=== PATIENT | male | born 1940 | race Caucasian/White ===

== ENCOUNTER 2020-08-22 08:25 | Inpatient (IN) | payer MEDICARE, OTHER ==
[~2020-08-22] VITALS: Ht 175.3 cm; Wt 81.5 kg
--- NOTE | 2020-08-22 08:00 | NUR ---
Admission Note with Justification for Admission to [facility] Patient admitted to [facility] for protective oversight for emergency stabilization of acute psychiatric crisis. Pt admitted from: Home to 48 hr unit Mode of arrival: wc Accompanied By: [facility] Staff Precipitating behaviors that initiated intake and admission:paranoia, passive SI, Description of failure of out patient attempts at stabilization in previous setting list behavior and medication trials: ER effexor Behaviors and assessment findings upon admission: wandering, confusion Plan: Admit for protective oversight for adjustment and stabilization of medications, behaviors and mood. Intense treatment regimen including groups, medication adjustments, therapy, consistent regimen for ADL's, self care, and sleep hygiene. Daily monitoring by Inpatient staff, Psychiatry, and Medical Physician.
[~2020-08-22 08:25] MED LIST: PREVAGEN PO; VIT1CAPS12 PO
[2020-08-22 10:29] VITALS: BP 165/99
[2020-08-22] MEDS ORDERED: ALLO100T PO (11:36)
[2020-08-22] MEDS ORDERED: COLCHICINE 0.6 MG TABLET. PO PRN (11:45)
[2020-08-22] MEDS ORDERED: COLC0.6T34 PO (11:46)
[2020-08-22] MEDS ORDERED: CINN500C2 PO (11:46)
[2020-08-22] MEDS ORDERED: VENL37.5 PO (11:46)
[2020-08-22] MEDS ORDERED: LISI20TA18 PO (11:46)
[2020-08-22] MEDS ORDERED: PANT40TA3 PO (11:46)
[2020-08-22] MEDS ORDERED: SAW450CA7 PO (11:46)
[2020-08-22] MEDS ORDERED: DICL100G18 TP (11:46)
[2020-08-22] MEDS ORDERED: METHYL SALICYLATE/MENTHOL TOPICAL OINTMENT 57GM TUBE. TP PRN (12:00)
[2020-08-22] MEDS ORDERED: MAG HYDROX/AL HYDROX/SIMETH 30 ML ORAL.SUSP PO PRN (12:00)
[2020-08-22] MEDS ORDERED: ACETAMINOPHEN 325 MG TABLET PO PRN (12:00)
[2020-08-22] MEDS ORDERED: MAGNESIUM HYDROXIDE 2,400 MG/30 ML ORAL.SUSP. PO PRN (12:00)
[2020-08-22] MEDS ORDERED: SAW/1TAB2 PO ×2 (12:34→12:36)
[2020-08-22] MEDS ORDERED: ALLOPURINOL 100 MG TABLET. PO SCH (13:00)
[2020-08-22] MEDS: DICLOFENAC SODIUM 1% TOPICAL GEL 100GM TUBE. TP SCH ×3 (13:00→21:00)
[2020-08-22] MEDS: VENLAFAXINE XR 37.5 MG CAP.ER.24H. PO SCH (13:00)
[2020-08-22] MEDS: PANTOPRAZOLE 40 MG TABLET. PO SCH (13:00)
[2020-08-22] MEDS: LISINOPRIL 20 MG TABLET PO SCH (13:00)
[2020-08-22 16:25] VITALS: BP 125/81
--- NOTE | 2020-08-22 18:49 | NUR ---
Pt upset when coming to floor. Pt wanted to go home. Grabbed staff and wouldn't let go . Pt placed in quiet holt for short while. Dr Rinaldi called and received order for PRN [place]. Has been pleasant rest of day and did not require PRNs.
--- NOTE | 2020-08-22 22:02 | PSYEV ---
DATE OF SERVICE: REASON FOR ADMISSION: This 79-year-old male who was transferred from the Medical Unit to [facility] with a history of dementia, paranoia and suicidal statements. CHIEF COMPLAINT: The patient unable to give much information was confused and disoriented and he thinks he is at work, he did not know that he is in the hospital. The patient is not able to give any information, but was able to hold a conversation and he was pleasantly confused. HISTORY OF PRESENT ILLNESS: The patient was living at home with his in [place], apparently his is the guardian. The patient lately has been confused, very paranoid with panic attacks, suicidal ideation and statements including wanting to shoot himself. Apparently, he has sundowning, periods that he does not recognize his . The patient was evaluated at [facility] and sent here to [facility]. PAST PSYCHIATRIC HISTORY: There is not much information available. Apparently, he has not had any psychiatric hospitalizations before. The patient's chart was on Effexor 37.5 mg daily. PAST MEDICAL HISTORY: History of hypertension essential, hyperlipidemia, chronic kidney disease stage 3, gout and osteoarthritis. He was a smoker. Currently does not smoke. ALLERGIES: THE PATIENT IS ALLERGIC TO PREDNISONE. PSYCHOSOCIAL HISTORY: The patient is unable to give much information. Apparently, the patient has been living at home. is the caregiver, he had been having memory problems for the past several years, but is able to manage him. 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 The patient is twice, first marriage about 20 years, second marriage for 40 years. The patient states he has one daughter from the first marriage. One of his brothers from lung cancer. His mother at age 70. Father at age 65. REVIEW OF SYSTEMS: The patient currently not exhibiting no major physical problems. The patient apparently has been confused, paranoid, threatening to kill himself with a gun. The patient also elopement risk. Significant confusion. He is not able to follow directions. ALCOHOL, DRUG HISTORY: The patient has no history of alcohol or drug use, but he was a smoker in the past. No history of any physical, emotional, or sexual abuse. LABORATORY DATA: The patient's lab reviewed. On admission, his hemoglobin was 12.5, white count of 7800. His creatinine was 1.7, BUN 20 and electrolytes were normal. Transaminases were all normal. MENTAL STATUS EXAMINATION: The patient appeared to be of her stated age, casually dressed, alert, disoriented and able to make eye contact. The patient is somewhat restless, walks with a rattling gait. No history of falls. The patient has no awareness of his surroundings. Speech is clear and coherent at times, but able to answer questions. His affect and mood showed he is pleasantly confused, not expressing any suicidal thoughts. The patient has significant problems with his memory, is not able to remember anything from the past except that he was twice and he has a daughter from the first marriage. The patient apparently has been paranoid, recently and he denies any visual or auditory hallucinations. The patient's thinking is concrete. No evidence of any loosening of associations. No evidence of any delusions or hallucinations. He is disoriented to time, place, and person. He knew the month is August and the year, he stated was 1939. The patient is not able to participate in any testing for the memory. The patient judgment impaired. Insight minimal. STRENGTHS: Fairly in good health, supportive . 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 WEAKNESSES: The patient is currently confused, not able to recognize his at times. He has no awareness of his surroundings and he is an elopement risk. DIAGNOSTIC IMPRESSION: AXIS I: 1. 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 2. Major depressive disorder, mild. 3. Generalized anxiety disorder. AXIS II: None. AXIS III: Hypertension, hyperlipidemia, chronic kidney disease stage 3, gout. INITIAL TREATMENT PLAN: The patient will be involved in the treatment program including individual and group therapy and also increase ___ activities. The patient will be observed monitored and accordingly, he will be started on medications to control his mood swings and also for his memory problems. He will continue on Effexor 37.5 mg daily. He will continue on lisinopril 20 mg daily, Protonix 40 mg daily, allopurinol 100 mg daily and colchicine 1.2 mg p.r.n. daily and Zyprexa 2.5 mg q. 2 hours p.r.n. LENGTH OF STAY: 7-10 days. STEPHANIE THOMASON MD DR: Melany JOB#: [id number] / [id number]
[2020-08-23] MEDS: DICLOFENAC SODIUM 1% TOPICAL GEL 100GM TUBE. TP SCH ×4 (01:26→21:23)
--- NOTE | 2020-08-23 03:30 | NUR ---
Pt has had no behaviors tonight. He was cooperative with shower then rested in his room until going to bed and has been sleeping well.
[2020-08-23 06:24] VITALS: BP 122/75
[2020-08-23] MEDS: LISINOPRIL 20 MG TABLET PO SCH (08:35)
[2020-08-23] MEDS: VENLAFAXINE XR 37.5 MG CAP.ER.24H. PO SCH (08:35)
[2020-08-23] MEDS: PANTOPRAZOLE 40 MG TABLET. PO SCH (08:35)
--- NOTE | 2020-08-23 10:11 | NUR ---
Nursing note: Pt in dining room at time of AM med pass and assessment. He is pleasant, med compliant and cooperative. He denies having any pain/concerns at time of assessment. He is currently resting quietly in his room. Will continue to monitor.
--- NOTE | 2020-08-23 13:13 | NUR ---
WEEKLY ACTIVITY THERAPY NOTE Date of Admission:08/22/20 Date of AT Assessment: TBD Precipitating behaviors that initiated intake and admission:paranoia, passive SI Goal aimed:TBD Initial Goal: TBD Weekly progress towards goal: NA Group participation level:NA Weekly highlights: arrived on [facility] Behaviors observed: Plan: meet/asses pt Beneficial adaptations:
[2020-08-23 15:47] VITALS: BP 107/71
--- NOTE | 2020-08-23 20:57 | PN ---
DATE: 08/23/2020 SUBJECTIVE: The patient was seen today, met with the staff, chart reviewed, and covering for Dr. Dominguez. Also participated in the treatment review conference today. Staff reports the patient's behavior mostly confused, but pleasant, disoriented to surroundings. 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 The patient is not showing any symptoms of depression, less agitated. OBSERVATION: VITAL SIGNS: Temperature 97.5, blood pressure 122/75, pulse 70, respirations 16, O2 sat 94%. GENERAL: Slept about 8 hours last night. ASSESSMENT: 1. Dementia, most likely Alzheimer's versus vascular with depression, paranoia, confusion and behavior disturbances. 2. Major depression, single episode, mild. 3. Generalized anxiety disorder. PLAN: Continue with the current treatment plan. LENGTH OF STAY: 7 days. STEPHANIE THOMASON MD DR: SAURABH/carmelina JOB#: [id number] / [id number]
--- NOTE | 2020-08-24 01:01 | NUR ---
Last evening pt walked around the unit and was social pleasant. He is pleasantly confused and has had no behaviors. At bed time he was cooperative with care and went to sleep.
[2020-08-24 06:16] VITALS: BP 135/83
[2020-08-24] MEDS: PANTOPRAZOLE 40 MG TABLET. PO SCH (08:26)
[2020-08-24] MEDS: VENLAFAXINE XR 37.5 MG CAP.ER.24H. PO SCH (08:26)
[2020-08-24] MEDS: LISINOPRIL 20 MG TABLET PO SCH (08:26)
[2020-08-24] MEDS: DICLOFENAC SODIUM 1% TOPICAL GEL 100GM TUBE. TP SCH ×4 (08:30→20:02)
--- NOTE | 2020-08-24 09:00 | NUR ---
ACTIVITY THERAPY ASSESSMENT completed based on notes, observation and interview. Pt was standing in the hallway by the [facility]. Pt was compliant and willing to answer questions. AT introduced herself and explained to groups provided on [facility]. AT asked pt what activities he likes and he said "just about everything." Pt said all he does is "work, work, work." Pt said he also likes to watch TV, fish, work on vehicles, running and chasing around his granddaughter. Pt said the current year was "2005" but is oriented to his birthday and that he is at a hospital but unsure of which hospital. AT asked pt what brought him here and he said "it was my 's idea" he then began to say that he is stuck here while she is at the [place]. AT asked pt about his family and he said that he is and has one daughter. Pt reports that he does not have a good support system as the pt expressed frustration with his . AT asked pt if he reports and stress at this time and he said "no, but he has things to get done at home." Initial goal aimed to support socialization and engagement. Pt will participate in at least three individual or group Activity Therapy sessions per week. Addendum: 08/30/20 at 1420 by ISAAC JAMES ACT Goal repeated 08/30
--- NOTE | 2020-08-24 10:53 | NUR ---
Nursing note: Pt in dining room at time of AM med pass and assessment. He is pleasant, med compliant and cooperative. Pt denies having any pain at time of assessment, but did mention having arthritis in his hands that cause him pain every once in a while. He is currently in the day room. Will continue to monitor.
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
--- NOTE | 2020-08-24 12:05 | TX PLAN ---
Interdisciplinary Tx Plan Admission Information Aug 22, 2020 at 08:25 Legal Status (on Admission): Voluntary DPOA/Guardian Name: Kenya Peak- Contact Allergies: Coded Allergies: prednisone (Verified Allergy, Mild, STOMACH UPSET, 08/22/20) Estimated Length of Stay: 14 Diagnoses Primary Diagnosis: MDD with psychotic features, dementia unspecified with BD Reasons for Admission: Depressed, Suicidal ideation, Suspicious/paranoid, Confusion/Disoriented, Poor impulse control Problem in Patient's Words: Raphael's memory loss is progressing to the point that he is difficult to manage at home resulting in ER visits and having to have the police locate Raphael when he went for a walk and did not come home. Additional Admission Comments: Per intake record, paranoid, passive SI, depressed, sundowning, periods of not recognizing , disoriented, states that if he had a gun he would shoot himself. Problems Active Problems: Progressive memory loss Paranoid depressed pasive SI Inactive Problems: Sleeping well Medication compliant Pt Strengths/Limitations Ability for [place]: Fair Cognitive Functioning/Ability: Fair Communication Skills/Ability: Fair Financial Resources: Fair Insight/Judgement: Poor Intellectual Ability: Fair Physical Health: Fair Social Skills: Fair Stability in Family: Good Verbal Skills: Fair Discharge Criteria Discharge Criteria: Adequate arrangements @DC, Improved mood/thought Preliminary Discharge Plan Preliminary DC Plan: Placement Needed, Home Special Precautions Special Precautions: Suicide Risk Fall Risk: High Initial D/C Plan Home vs. placement Identified Discharge Needs: While Kenya would like to see Raphael come home, she is touring [facility] as a placement option for Raphael. Currently Utilized Resources Currently Utilized Resources/P: PCP Referrals Community Resources: Out patient psychiatry if available Identified Problems/Hx/Goals Objectives/Short-Term Goals Short Term Goals: Dec. Symp. Depression, Medication Stabilization, Monitor Med Effects, No Suicidal/Hernan. ideation Short Term Goals in Patient's: "To be happy and get my body where it doesn't tremble." Interventions/Frequency Staff Interventions/Frequency&: Nursing to provide rotuine safety checks, medication administration, and adl support. Psychiatry to see thre times weekly. SW visit twice weekly. SW and recreational threapy groups as Raphael desires. 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 Raphael worked at [employer] for a period of time. 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 Social: Zak has enjoyed fishing, boating, camping, and water skiing. Education: Raphael graduated high school. Community Follow-up PCP Out patient psych, if available Community Provider/Family Inpu: Team meeting was held on 08/23/20. Treatment plan data reporting analyst was completed on 08/24/20. MARJ reviewed with Kenya on 08/24/20. Kenya will be involved in next team meeting scheduled for 08/30/20. Treatment Plan Explained Patient/Clerical Car Checker had this treatment plan explained to him/her as indicated by the signature below and has been given the opportunity to ask questions and make suggestions: Date: Patient/Clerical Car Checker Signature: DARIAN MCKEON Aug 24, 2020 12:05
[2020-08-24 16:10] VITALS: BP 132/78
--- NOTE | 2020-08-24 23:49 | NUR ---
Nursing Note Pt in room during assessment, pleasant calm and cooperative. Denies complaints no behaviors this pm.
[2020-08-25 06:17] VITALS: BP 155/76
[2020-08-25] MEDS: VENLAFAXINE XR 37.5 MG CAP.ER.24H. PO SCH (08:03)
[2020-08-25] MEDS: LISINOPRIL 20 MG TABLET PO SCH (08:03)
[2020-08-25] MEDS: PANTOPRAZOLE 40 MG TABLET. PO SCH (08:03)
[2020-08-25] MEDS: DICLOFENAC SODIUM 1% TOPICAL GEL 100GM TUBE. TP SCH ×4 (08:03→20:21)
[2020-08-25 10:22] LABS: BASO # 0.1 x10^3/uL (0.0-0.2); BASO % 1 % (0-3); EOS # 0.2 x10^3/uL (0.0-0.7); EOS % 3 % (0-3); HEMATOCRIT 38.4 % (39.0-53.0); LYMPH # 1.4 x10^3/uL (1.0-4.8); LYMPH % 24 % (24-48); MEAN CORPUSCULAR HEMOGLOBIN 32 pg (25-35); MEAN CORPUSCULAR HGB CONC 34 g/dL (31-37); MEAN CORPUSCULAR VOLUME 94 fL (79-100); MONO # 0.6 x10^3/uL (0.0-1.1); MONO % 10 % (0-9); NEUT # 3.8 x10^3uL (1.8-7.7); NEUT % 63 % (31-73); PLATELET COUNT 205 x10^3/uL (140-400); RED BLOOD COUNT 4.09 x10^6/uL (4.30-5.70); RED CELL DISTRIBUTION WIDTH 13.3 % (11.5-14.5); WHITE BLOOD COUNT 6.1 x10^3/uL (4.0-11.0)
--- NOTE | 2020-08-25 13:21 | NUR ---
Nursing note: Pt in dining room at time of AM med pass and assessment. He is med compliant and cooperative. Pt is very interactive and social with peers. He is currently in the day room for group. Will continue to monitor.
[2020-08-25 16:19] VITALS: BP 142/74
[2020-08-25 17:04] LABS: ALBUMIN 3.5 g/dL (3.4-5.0); CALCIUM 9.1 mg/dL (8.5-10.1); CREATININE 1.6 mg/dL (0.7-1.3); GFR 41.8; POTASSIUM 4.7 mmol/L (3.5-5.1); TOTAL BILIRUBIN 0.3 mg/dL (0.2-1.0); TOTAL PROTEIN 7.1 g/dL (6.4-8.2)
--- NOTE | 2020-08-25 21:49 | PN ---
DATE: 08/24/2020 This is late entry for the service date 08/24/2020. SUBJECTIVE: Staff reports confusion but pleasant, problems with boundaries also exhibiting poor impulse control, low frustration tolerance. The patient also is concrete with his thinking. OBSERVATION: VITAL SIGNS: Temperature 97.8, blood pressure 135/83, pulse 71, respirations 20, O2 sat 95%. GENERAL: Slept about 6 hours last night. CURRENT MEDICATIONS: The patient's current medications include venlafaxine 37.5 mg daily and olanzapine 2.5 mg q. 2 hours p.r.n. for severe agitation. LABORATORY DATA: The patient's lab reviewed. ASSESSMENT: 1. Dementia, most likely Alzheimer's versus vascular with a depression, paranoia, confusion, and behavioral disturbances. 2. Major depression, single episode, mild. 3. Generalized anxiety disorder. PLAN: To continue with treatment. LENGTH OF STAY: 7 days. STEPHANIE THOMASON MD DR: SAURABH/carmelina JOB#: [id number] / [id number]
--- NOTE | 2020-08-26 04:28 | NUR ---
Pt has jacob pleasant social and cooperative tonight. Meds were given crushed in applesauce. He has had no behaviors tonight.
[2020-08-26 05:58] VITALS: BP 170/90
[2020-08-26] MEDS: DICLOFENAC SODIUM 1% TOPICAL GEL 100GM TUBE. TP SCH ×4 (09:00→20:56)
[2020-08-26] MEDS: VENLAFAXINE XR 37.5 MG CAP.ER.24H. PO SCH (09:12)
[2020-08-26] MEDS: PANTOPRAZOLE 40 MG TABLET. PO SCH (09:12)
[2020-08-26] MEDS: LISINOPRIL 20 MG TABLET PO SCH (09:13)
--- NOTE | 2020-08-26 10:43 | NUR ---
Pt appropriate and cooperative this shift. He is compliant with medications taken whole. His interactions with others have been appropriate. He denies SI/HI/VH/AH/delusions/pain. He is able to make his needs known ot staff and has no questions/concerns/requests at this time. Plan of care continues, will pass on to next shift.
--- NOTE | 2020-08-26 16:06 | NUR ---
1:1 with Raphael to socialize and complete MMSE. Raphael appeared to recall this worker from previous visit. He reported he napped today, visited with his peers, and played games in the day room. Raphael enjoyed sharing about his great grand daughter and how he bought her a trampoline. Raphael scored 18/30 on MMSE indicating possible moderate cognitive impairment. Raphael had difficulty drawing the face of a clock with the time of 3:30. Raphael spoke of his desire to go home and of [place]. While he had difficulty completing the questions on the MMSE, he appeared clearer than earlier in the week. Will follow.
[2020-08-26 16:38] VITALS: BP 147/91
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
--- NOTE | 2020-08-26 23:00 | NUR ---
Patient is ambulating around the unit on assumption of care. He is in pleasant spirits. Calm, cooperative and compliant with assessments and HS cares. He enjoyed a conversation with his . Denies any pain or discomfort. Denies SI. He appears to be sleeping comfortably at present time. Will continue to monitor.
[2020-08-27 06:27] VITALS: BP 164/82
[2020-08-27] MEDS: LISINOPRIL 20 MG TABLET PO SCH (08:30)
[2020-08-27] MEDS: VENLAFAXINE XR 37.5 MG CAP.ER.24H. PO SCH (08:30)
[2020-08-27] MEDS: PANTOPRAZOLE 40 MG TABLET. PO SCH (08:30)
[2020-08-27] MEDS: DICLOFENAC SODIUM 1% TOPICAL GEL 100GM TUBE. TP SCH ×4 (09:00→20:47)
[2020-08-27 16:26] VITALS: BP 122/80
--- NOTE | 2020-08-27 20:01 | NUR ---
Pt up adl to meals and is out to groups. Compliant with meds and groups.
[2020-08-27] MEDS: DIVALPROEX 125 MG CAP.SPRINK PO SCH (20:50)
--- NOTE | 2020-08-27 22:41 | PN ---
DATE: 08/27/2020 SUBJECTIVE: The patient was seen today, met with the staff, chart reviewed. Staff reports he has been cooperative, medication compliant. The patient apparently has elevated blood pressure in the morning. The patient still gets agitated easily. OBSERVATION: VITAL SIGNS: Temperature 97.6, blood pressure 164/82, pulse 72, respirations 18, O2 sat 97%. GENERAL: Slept about 8 hours last night. CURRENT MEDICATIONS: The patient's current medications include venlafaxine 37.5 mg daily, olanzapine 2.5 mg q 2 hours p.r.n. for severe agitation and started on Depakote 250 mg b.i.d. p.o. for mood stabilization. ASSESSMENT: 1. Dementia, most likely Alzheimer's versus vascular with depression, paranoia, confusion and behavior problems. 2. Major depressive disorder, single episode, mild. 3. Generalized anxiety disorder. PLAN: To continue with the treatment. LENGTH OF STAY: 7 days. STEPHANIE THOMASON MD DR: SAURABH/carmelina JOB#: [id number] / [id number]
--- NOTE | 2020-08-27 22:41 | PN ---
DATE: 08/26/2020 This is the late entry. SUBJECTIVE: The patient was seen today, met with the staff, chart reviewed. Staff reports continued problems. He is pleasant, but confused, tend to be intrusive at times. The patient lacks insight. The patient also has significant cognitive deficits. OBSERVATION: VITAL SIGNS: Temperature 97.1, blood pressure 170/90, pulse 73, respirations 20, O2 sat 95%. GENERAL: Slept about 6 hours last night. CURRENT MEDICATIONS: The patient's current medications include venlafaxine 37.5 mg daily, olanzapine 2.5 mg q. 2 hours p.r.n. for severe agitation. The patient is not having any side effects. LABORATORY DATA: Reviewed. ASSESSMENT: 1. Dementia, most likely Alzheimer's versus vascular with a depression, paranoia, confusion and behavior problems. 2. Major depressive disorder, single episode, mild. 3. Generalized anxiety disorder. PLAN: To continue with the treatment. LENGTH OF STAY: 7 days. STEPHANIE THOMASON MD DR: SAURABH/carmelina JOB#: [id number] / [id number]
--- NOTE | 2020-08-27 23:59 | NUR ---
Patient is in his room on assumption of care, awake in bed. He is in pleasant spirits. Calm, cooperative and compliant with assessments and medications taken whole. He did become irritable when told it was time to take a shower, stating "I'm busy working, there's rocks everywhere. No use in showering when I am just gonna keep working and get dirty again." Patient irritable and continued to refuse. Different staff member approached and was able to reorient the patient. Patient was then compliant with shower and HS cares. Denies any pain or discomfort. Denies SI. He appears to be sleeping comfortably at present time. Will continue to monitor.
[2020-08-28 06:49] VITALS: BP 158/90
[2020-08-28] MEDS: PANTOPRAZOLE 40 MG TABLET. PO SCH (08:50)
[2020-08-28] MEDS: DIVALPROEX 125 MG CAP.SPRINK PO SCH ×2 (08:50→21:14)
[2020-08-28] MEDS: LISINOPRIL 20 MG TABLET PO SCH (08:50)
[2020-08-28] MEDS: VENLAFAXINE XR 37.5 MG CAP.ER.24H. PO SCH (08:50)
[2020-08-28] MEDS: DICLOFENAC SODIUM 1% TOPICAL GEL 100GM TUBE. TP SCH ×4 (08:51→21:14)
[2020-08-28 15:44] VITALS: BP 127/74
--- NOTE | 2020-08-28 17:20 | NUR ---
Pt up adl to meals and groups. Pleasantly confused. Compliant with meds and cares.
--- NOTE | 2020-08-29 02:06 | NUR ---
Pt compliant with meds and cares, very pleasant but confused.
[2020-08-29 06:32] VITALS: BP 122/75
[2020-08-29] MEDS: PANTOPRAZOLE 40 MG TABLET. PO SCH (07:39)
[2020-08-29] MEDS: VENLAFAXINE XR 37.5 MG CAP.ER.24H. PO SCH (07:39)
[2020-08-29] MEDS: LISINOPRIL 20 MG TABLET PO SCH (07:39)
[2020-08-29] MEDS: DIVALPROEX 125 MG CAP.SPRINK PO SCH ×2 (07:39→20:17)
[2020-08-29] MEDS: DICLOFENAC SODIUM 1% TOPICAL GEL 100GM TUBE. TP SCH ×4 (07:40→20:17)
--- NOTE | 2020-08-29 14:10 | NUR ---
NURSING NOTE PT OUTSIDE HIS AFTERNOON, CALM AND COOPERATIVE. PT USES VOLTAREN GEL ON BILATERAL SHOULDERS. PT DENIES SI TODAY. PT INTERACTIVE WITH OTHER RESIDENTS APPROPRIATELY THIS AFTERNOON. NO COMPLICATIONS THUS FAR. CRYSTAL KILGORE.
[2020-08-29 15:54] VITALS: BP 131/75
--- NOTE | 2020-08-29 22:00 | NUR ---
Pt awake in bed in his room at change of shift. Pt was calm, pleasant and cooperative with cares and assessments. Pt was compliant with mediations whole and refused HS snack. Pt requested the lights be turned off when this staff member left room cause he was "calling it a night." Pt pulled covers up and turned onto side for sleep.
--- NOTE | 2020-08-29 22:38 | PDOC ---
Exam Note: Chacorta Note: Late entry for 08/28/2020. Please also refer to the separate dictated note~for this date of service dictated separately.~Patient seen individually. Discussed the patient with Nursing staff reviewed the chart.~Reviewed interim history and current functioning. Reviewed vital signs,~Labs/ Radiology~and current medic ations noted below. Continue current treatment with the changes noted in the dictated addendum note Assessment: Vital Signs/I&O: Vital Signs Date Time Temp Pulse Resp B/P (MAP) Pulse Ox O2 Delivery O2 Flow Rate FiO2 08/29/20 15:54 98.2 68 20 131/75 (93) 98 08/29/20 06:32 Room Air I & O 0 08/28/20 08/28/20 08/29/20 15:00 23:00 07:00 Intake Total 600 ml 360 ml Balance 600 ml 360 ml Current Medications: Meds: Current Medications Medications (Trade) Dose Ordered Sig/Noble Route PRN Reason Start Time Stop Time Status Last Admin Dose Admin Allopurinol (Zyloprim) 100 mg DAILY PO 08/22/20 13:00 08/23/20 04:15 DC 08/22/20 13:00 Colchicine (Colcrys) 1.2 mg PRN DAILY PRN PO gout MRx1 hour 08/22/20 11:45 Diclofenac Sodium (Voltaren) 1 antoine QID TP 08/22/20 13:00 08/29/20 20:17 Lisinopril (Prinivil) 20 mg DAILY PO 08/22/20 13:00 08/29/20 07:39 Pantoprazole Sodium (Protonix) 40 mg DAILY PO 08/22/20 13:00 08/29/20 07:39 Venlafaxine HCl (Effexor Xr) 37.5 mg DAILY PO 08/22/20 13:00 08/29/20 18:51 DC 08/29/20 07:39 Acetaminophen (Tylenol) 650 mg PRN Q6HRS PRN PO MILD PAIN / TEMP > 100.3'F 08/22/20 12:00 Multi-Ingredient Ointment (Analgesic [place]) 1 antoine PRN QID PRN TP MUSCLE PAIN 08/22/20 12:00 Al Hydroxide/Mg Hydroxide (Mylanta Plus Xs) 15 ml PRN AFTMEALHC PRN PO DYSPEPSIA 08/22/20 12:00 Magnesium Hydroxide (Milk Of Magnesia) 2,400 mg PRN QHS PRN PO CONSTIPATION 08/22/20 12:00 Olanzapine (ZyPREXA ZYDIS) 2.5 mg PRN Q2HRS PRN PO PSYCHOSIS 08/22/20 12:00 Divalproex Sodium (Depakote Sprinkles) 250 mg BID PO 08/27/20 21:00 08/29/20 20:17 Venlafaxine HCl (Effexor Xr) 75 mg DAILY PO 08/30/20 09:00 I have reviewed the current psychotropics carefully including drug interactions. Risk benefit ratio favors no change other than as noted in my dictated progress note. Diagnosis: Problems: (1) Major depressive disorder with psychotic features (2) Anxiety disorder, unspecified PIERRE PHILIPPE MD Aug 29, 2020 22:38
--- NOTE | 2020-08-29 22:39 | PDOC ---
Exam Note: Chacorta Note: Please also refer to the separate dictated note~for this date of service dictated separately.~Patient seen individually. Discussed the patient with Nursing staff reviewed the chart.~Reviewed interim history and current functioning. Reviewed vital signs,~Labs/ Radiology~and current medications noted below. Continue current treatment with the changes noted in the dictated addendum note Assessment: Vital Signs/I&O: Vital Signs Date Time Temp Pulse Resp B/P (MAP) Pulse Ox O2 Delivery O2 Flow Rate FiO2 08/29/20 15:54 98.2 68 20 131/75 (93) 98 08/29/20 06:32 Room Air I & O 08/28/20 08/28/20 08/29/20 15:00 23:00 07:00 Intake Total 600 ml 360 ml Balance 600 ml 360 ml Current Medications: Meds: Current Medications Medications (Trade) Dose Ordered Sig/Noble Route PRN Reason Start Time Stop Time Status Last Admin Dose Admin Allopurinol (Zyloprim) 100 mg DAILY PO 08/22/20 13:00 08/23/20 04:15 DC 08/22/20 13:00 Colchicine (Colcrys) 1.2 mg PRN DAILY PRN PO gout MRx1 hour 08/22/20 11:45 Diclofenac Sodium (Voltaren) 1 antoine QID TP 08/22/20 13:00 08/29/20 20:17 Lisinopril (Prinivil) 20 mg DAILY PO 08/22/20 13:00 08/29/20 07:39 Pantoprazole Sodium (Protonix) 40 mg DAILY PO 08/22/20 13:00 08/29/20 07:39 Venlafaxine HCl (Effexor Xr) 37.5 mg DAILY PO 08/22/20 13:00 08/29/20 18:51 DC 08/29/20 07:39 Acetaminophen (Tylenol) 650 mg PRN Q6HRS PRN PO MILD PAIN / TEMP > 100.3'F 08/22/20 12:00 Multi-Ingredient Ointment (Analgesic [place]) 1 antoine PRN QID PRN TP MUSCLE PAIN 08/22/20 12:00 Al Hydroxide/Mg Hydroxide (Mylanta Plus Xs) 15 ml PRN AFTMEALHC PRN PO DYSPEPSIA 08/22/20 12:00 Magnesium Hydroxide (Milk Of Magnesia) 2,400 mg PRN QHS PRN PO CONSTIPATION 08/22/20 12:00 Olanzapine (ZyPREXA ZYDIS) 2.5 mg PRN Q2HRS PRN PO PSYCHOSIS 08/22/20 12:00 Divalproex Sodium (Depakote Sprinkles) 250 mg BID PO 08/27/20 21:00 08/29/20 20:17 Venlafaxine HCl (Effexor Xr) 75 mg DAILY PO 08/30/20 09:00 I have reviewed the current psychotropics carefully including drug interactions. Risk benefit ratio favors no change other than as noted in my dictated progress note. Diagnosis: Problems: (1) Major depressive disorder with psychotic features (2) Anxiety disorder, unspecified PIERRE PHILIPPE MD Aug 29, 2020 22:39
[2020-08-30 06:29] VITALS: BP 122/75
--- NOTE | 2020-08-30 07:50 | PDOC ---
Exam Note: Chacorta Note: This note is a late entry for 08/28/2020 covers elements not covered in my initial note. Subjective: Dr. Rinaldi had covered for me from 14 August till August, and I assumed care of the patients from 28 August. I have reviewed information and interim progress notes at some length with Dr. Rinaldi. The patient was seen individually in the evening of 08/28/2020 with Neema ROJAS, discussed and reviewed the chart. He slept 8-1/4 hours previous night. Reportedly the patient voiced passive suicidal ideation more so in the evening. He was unable to recognize his on the phone, wandering the unit. I met with him at great length individually. 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 Recent memory is impaired. Review of Systems: No CV, , pulmonary, eye, ENT system symptoms on review. Mental Status Exam: The patient is oriented to himself and situation. Speech is coherent. Abstraction is fair. Computation is impaired. Language function is intact. Attention span is short. Mood and affect remains anxious, somewhat labile at times. No suicidal or homicidal ideation. Laboratory Data: Reviewed. Impression: Major depressive disorder with psychotic features. Mild cognitive impairment. Anxiety disorder unspecified. Impulse control disorder unspecified. Plan: I have carefully reviewed drug interactions and risk-benefit ratio. Continue rest psychotropics unchanged including Effexor and Depakote. We will check valproic acid level. Adjust Depakote to reach therapeutic level. Consider increasing Effexor depending on his progress. Assessment: Vital Signs/I&O: Vital Signs Date Time Temp Pulse Resp B/P (MAP) Pulse Ox O2 Delivery O2 Flow Rate FiO2 08/30/20 06:29 98.2 66 18 122/75 (91) 94 08/29/20 06:32 Room Air I & O 08/29/20 08/29/20 08/30/20 15:00 23:00 07:00 Intake Total 685 ml 445 ml Balance 685 ml 445 ml Current Medications: Meds: Current Medications Medications (Trade) Dose Ordered Sig/Onble Route PRN Reason Start Time Stop Time Status Last Admin Dose Admin Allopurinol (Zyloprim) 100 mg DAILY PO 08/22/20 13:00 08/23/20 04:15 DC 08/22/20 13:00 Colchicine (Colcrys) 1.2 mg PRN DAILY PRN PO gout MRx1 hour 08/22/20 11:45 Diclofenac Sodium (Voltaren) 1 antoine QID TP 08/22/20 13:00 08/29/20 20:17 Lisinopril (Prinivil) 20 mg DAILY PO 08/22/20 13:00 08/29/20 07:39 Pantoprazole Sodium (Protonix) 40 mg DAILY PO 08/22/20 13:00 08/29/20 07:39 Venlafaxine HCl (Effexor Xr) 37.5 mg DAILY PO 08/22/20 13:00 08/29/20 18:51 DC 08/29/20 07:39 Acetaminophen (Tylenol) 650 mg PRN Q6HRS PRN PO MILD PAIN / TEMP > 100.3'F 08/22/20 12:00 Multi-Ingredient Ointment (Analgesic [place]) 1 antoine PRN QID PRN TP MUSCLE PAIN 08/22/20 12:00 Al Hydroxide/Mg Hydroxide (Mylanta Plus Xs) 15 ml PRN AFTMEALHC PRN PO DYSPEPSIA 08/22/20 12:00 Magnesium Hydroxide (Milk Of Magnesia) 2,400 mg PRN QHS PRN PO CONSTIPATION 08/22/20 12:00 Olanzapine (ZyPREXA ZYDIS) 2.5 mg PRN Q2HRS PRN PO PSYCHOSIS 08/22/20 12:00 Divalproex Sodium (Depakote Sprinkles) 250 mg BID PO 08/27/20 21:00 08/29/20 20:17 Venlafaxine HCl (Effexor Xr) 75 mg DAILY PO 08/30/20 09:00 I have reviewed the current psychotropics carefully including drug interactions. Risk benefit ratio favors no change other than as noted in my dictated progress note. Diagnosis: Problems: (1) Impulse control disorder, unspecified (2) Mild cognitive impairment (3) Major depressive disorder with psychotic features (4) Anxiety disorder, unspecified PIERRE PHILIPPE MD Aug 30, 2020 07:50
[2020-08-30] MEDS: VENLAFAXINE XR 37.5 MG CAP.ER.24H. PO SCH (08:10)
[2020-08-30] MEDS: PANTOPRAZOLE 40 MG TABLET. PO SCH (08:11)
[2020-08-30] MEDS: DIVALPROEX 125 MG CAP.SPRINK PO SCH ×2 (08:11→20:25)
[2020-08-30] MEDS: LISINOPRIL 20 MG TABLET PO SCH (08:11)
--- NOTE | 2020-08-30 08:22 | PDOC ---
Exam Note: Chacorta Note: This note is a late entry for 08/29/2020 covers elements not covered in my initial note. Subjective: The patient was seen individually in the evening of 08/29/2020 with Yasmin ROJAS, discussed and reviewed the chart. He slept 7-3/4 hours previous night. The patient has had no hallucinations. He is pleasant. Review of Systems: No CV, , pulmonary, eye, ENT system symptoms on review. Mental Status Exam: The patient is oriented to himself and situation. Speech is coherent. Abstraction is fair. Computation is impaired. Language function is intact. Attention span is short. Mood and affect remains anxious, somewhat labile at times. No suicidal or homicidal ideation. Laboratory Data: Reviewed. Impression: Major depressive disorder with psychotic features. Mild cognitive impairment. Anxiety disorder unspecified. Impulse control disorder unspecified. Plan: No change from initial note. Assessment: Vital Signs/I&O: Vital Signs Date Time Temp Pulse Resp B/P (MAP) Pulse Ox O2 Delivery O2 Flow Rate FiO2 08/30/20 08:11 66 122/75 08/30/20 06:29 98.2 18 94 08/29/20 06:32 Room Air I & O 0 08/29/20 08/29/20 08/30/20 15:00 23:00 07:00 Intake Total 685 ml 445 ml Balance 685 ml 445 ml Current Medications: Meds: Current Medications Medications (Trade) Dose Ordered Sig/Noble Route PRN Reason Start Time Stop Time Status Last Admin Dose Admin Allopurinol (Zyloprim) 100 mg DAILY PO 08/22/20 13:00 08/23/20 04:15 DC 08/22/20 13:00 Colchicine (Colcrys) 1.2 mg PRN DAILY PRN PO gout MRx1 hour 08/22/20 11:45 Diclofenac Sodium (Voltaren) 1 antoine QID TP 08/22/20 13:00 08/29/20 20:17 Lisinopril (Prinivil) 20 mg DAILY PO 08/22/20 13:00 08/30/20 08:11 Pantoprazole Sodium (Protonix) 40 mg DAILY PO 08/22/20 13:00 08/30/20 08:11 Venlafaxine HCl (Effexor Xr) 37.5 mg DAILY PO 08/22/20 13:00 08/29/20 18:51 DC 08/29/20 07:39 Acetaminophen (Tylenol) 650 mg PRN Q6HRS PRN PO MILD PAIN / TEMP > 100.3'F 08/22/20 12:00 Multi-Ingredient Ointment (Analgesic [place]) 1 antoine PRN QID PRN TP MUSCLE PAIN 08/22/20 12:00 Al Hydroxide/Mg Hydroxide (Mylanta Plus Xs) 15 ml PRN AFTMEALHC PRN PO DYSPEPSIA 08/22/20 12:00 Magnesium Hydroxide (Milk Of Magnesia) 2,400 mg PRN QHS PRN PO CONSTIPATION 08/22/20 12:00 Olanzapine (ZyPREXA ZYDIS) 2.5 mg PRN Q2HRS PRN PO PSYCHOSIS 08/22/20 12:00 Divalproex Sodium (Depakote Sprinkles) 250 mg BID PO 08/27/20 21:00 08/30/20 08:11 Venlafaxine HCl (Effexor Xr) 75 mg DAILY PO 08/30/20 09:00 08/30/20 08:10 Current Medications Medications (Trade) Dose Ordered Sig/Noble Route PRN Reason Start Time Stop Time Status Last Admin Dose Admin Venlafaxine HCl (Effexor Xr) 75 mg DAILY PO 08/30/20 09:00 08/30/20 08:10 I have reviewed the current psychotropics carefully including drug interactions. Risk benefit ratio favors no change other than as noted in my dictated progress note. Diagnosis: Problems: (1) Major depressive disorder with psychotic features (2) Anxiety disorder, unspecified (3) Impulse control disorder, unspecified (4) Mild cognitive impairment PIERRE PHILIPPE MD Aug 30, 2020 08:22
[2020-08-30] MEDS: DICLOFENAC SODIUM 1% TOPICAL GEL 100GM TUBE. TP SCH ×6 (09:00→20:27)
--- NOTE | 2020-08-30 11:07 | NUR ---
Pt appears to be in a pleasant and interactive mood this morning. He is compliant with medications taken whole and is receptive to education provided. His interactions with others have been appropriate and absent of problematic behaviors. He denies SI/HI/VH/AH/delusions/pain. He is able to make his needs known to staff and has no questions/concerns/requests at this time. Plan of care continues, will pass on to next shift.
--- NOTE | 2020-08-30 14:17 | NUR ---
WEEKLY ACTIVITY THERAPY NOTE Date of Admission:08/22/20 Date of AT Assessment: 08/24 Precipitating behaviors that initiated intake and admission:paranoia, passive SI Goal aimed: support socialization and engagement Initial Goal: Pt will participate in at least three individual or group Activity Therapy sessions per week. Weekly progress towards goal: achieved, 5/ Group participation level: 2 min, 2 mod, 1 full Weekly highlights: memory game Sunday, music through the decades , chatted and listend to music with peers during patio time during Sunday group Behaviors observed: pleasant with peers and staff, needs some assistance with cognitive stimulation groups Plan: repeat goal Beneficial adaptations:
--- NOTE | 2020-08-30 14:40 | TX PLAN ---
Interdisciplinary Tx Plan Admission Information Aug 22, 2020 at 08:25 Legal Status (on Admission): Voluntary DPOA/Guardian Name: Kenya Peak- Contact Allergies: Coded Allergies: prednisone (Verified Allergy, Mild, STOMACH UPSET, 08/22/20) Estimated Length of Stay: 14 Diagnoses Primary Diagnosis: MDD with psychotic features, dementia unspecified with BD Reasons for Admission: Depressed, Suicidal ideation, Suspicious/paranoid, Confusion/Disoriented, Poor impulse control Problem in Patient's Words: Raphael's memory loss is progressing to the point that he is difficult to manage at home resulting in ER visits and having to have the police locate Raphael when he went for a walk and did not come home. Additional Admission Comments: Per intake record, paranoid, passive SI, depressed, sundowning, periods of not recognizing , disoriented, states that if he had a gun he would shoot himself. Problems Active Problems: Progressive memory loss Paranoid depressed pasive SI Inactive Problems: Sleeping well Medication compliant Pt Strengths/Limitations Ability for [place]: Fair Cognitive Functioning/Ability: Fair Communication Skills/Ability: Fair Financial Resources: Fair Insight/Judgement: Poor Intellectual Ability: Fair Physical Health: Fair Social Skills: Fair Stability in Family: Good Verbal Skills: Fair Discharge Criteria Discharge Criteria: Adequate arrangements @DC, Improved mood/thought Preliminary Discharge Plan Preliminary DC Plan: Placement Needed, Home Special Precautions Special Precautions: Suicide Risk Fall Risk: High Initial D/C Plan Home vs. placement Identified Discharge Needs: While Kenya would like to see Raphael come home, she is touring [facility] as a placement option for Raphael. Currently Utilized Resources Currently Utilized Resources/P: PCP Referrals Community Resources: Out patient psychiatry if available Identified Problems/Hx/Goals Objectives/Short-Term Goals Short Term Goals: Dec. Symp. Depression, Medication Stabilization, Monitor Med Effects, No Suicidal/Hernan. ideation Short Term Goals in Patient's: "To be happy and get my body where it doesn't tremble." Interventions/Frequency Staff Interventions/Frequency&: Nursing to provide rotuine safety checks, medication administration, and adl support. Psychiatry to see thre times weekly. SW visit twice weekly. SW and recreational threapy groups as Raphael desires. 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 Raphael worked at [email or web address] for a period of time. 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 Social: Zak has enjoyed fishing, boating, camping, and water skiing. Education: Raphael graduated high school. Community Follow-up PCP Out patient psych, if available Community Provider/Family Inpu: Team meeting was held on 08/23/20. Treatment plan database security administrator was completed on 08/24/20. MARJ reviewed with eKnya on 08/24/20. Kenya will be involved in next team meeting scheduled for 08/30/20. Treatment Plan Explained Patient/Director Of Cardiology Service Line had this treatment plan explained to him/her as indicated by the signature below and has been given the opportunity to ask questions and make suggestions: Date: Patient/Director Of Cardiology Service Line Signature: Status Update Update WEEKLY NOTE/UPDATE: Raphael has been medication compliant and cooperative with nursing assessments. He has been involved in five group activities this past week and is attending meals in the dining room. Meal intakes and sleep are adequate. Raphael scored 18/30 on MMSE and is noted to sundown. His Effexor was increased to 75mg po daily as he had SI on 08/27/20. Valproic level will be checked on 08/31/20. Raphael benefits from cues, prompts, reminders for safety. His was unable to be involved in team meeting his date as she had another appointment. is planning on placing Raphael and has toured [facility] and rehab. She does not feel able to manage him at home any longer. MARJ will discuss placement with Raphael and coordinate referral to [place]. Tentative d/c date next week. DARIAN MCKEON Aug 30, 2020 14:40
[2020-08-30 16:12] VITALS: BP 135/75
--- NOTE | 2020-08-30 22:25 | PDOC ---
Exam Note: Chacorta Note: Please also refer to the separate dictated note~for this date of service dictated separately.~Patient seen individually. Discussed the patient with Nursing staff reviewed the chart.~Reviewed interim history and current functioning. Reviewed vital signs,~Labs/ Radiology~and current medications noted below. Continue current treatment with the changes noted in the dictated addendum note Assessment: Vital Signs/I&O: Vital Signs Date Time Temp Pulse Resp B/P (MAP) Pulse Ox O2 Delivery O2 Flow Rate FiO2 08/30/20 16:12 98.3 64 18 135/75 (95) 95 08/29/20 06:32 Room Air I & O 08/29/20 08/29/20 08/30/20 15:00 23:00 07:00 Intake Total 685 ml 445 ml Balance 685 ml 445 ml Current Medications: Meds: Current Medications Medications (Trade) Dose Ordered Sig/Noble Route PRN Reason Start Time Stop Time Status Last Admin Dose Admin Allopurinol (Zyloprim) 100 mg DAILY PO 08/22/20 13:00 08/23/20 04:15 DC 08/22/20 13:00 Colchicine (Colcrys) 1.2 mg PRN DAILY PRN PO gout MRx1 hour 08/22/20 11:45 Diclofenac Sodium (Voltaren) 1 antoine QID TP 08/22/20 13:00 08/29/20 20:17 Lisinopril (Prinivil) 20 mg DAILY PO 08/22/20 13:00 08/30/20 08:11 Pantoprazole Sodium (Protonix) 40 mg DAILY PO 08/22/20 13:00 08/30/20 08:11 Venlafaxine HCl (Effexor Xr) 37.5 mg DAILY PO 08/22/20 13:00 08/29/20 18:51 DC 08/29/20 07:39 Acetaminophen (Tylenol) 650 mg PRN Q6HRS PRN PO MILD PAIN / TEMP > 100.3'F 08/22/20 12:00 Multi-Ingredient Ointment (Analgesic [place]) 1 antoine PRN QID PRN TP MUSCLE PAIN 08/22/20 12:00 Al Hydroxide/Mg Hydroxide (Mylanta Plus Xs) 15 ml PRN AFTMEALHC PRN PO DYSPEPSIA 08/22/20 12:00 Magnesium Hydroxide (Milk Of Magnesia) 2,400 mg PRN QHS PRN PO CONSTIPATION 08/22/20 12:00 Olanzapine (ZyPREXA ZYDIS) 2.5 mg PRN Q2HRS PRN PO PSYCHOSIS 08/22/20 12:00 Divalproex Sodium (Depakote Sprinkles) 250 mg BID PO 08/27/20 21:00 08/30/20 20:25 Venlafaxine HCl (Effexor Xr) 75 mg DAILY PO 08/30/20 09:00 08/30/20 08:10 Current Medications Medications (Trade) Dose Ordered Sig/Noble Route PRN Reason Start Time Stop Time Status Last Admin Dose Admin Venlafaxine HCl (Effexor Xr) 75 mg DAILY PO 08/30/20 09:00 08/30/20 08:10 I have reviewed the current psychotropics carefully including drug interactions. Risk benefit ratio favors no change other than as noted in my dictated progress note. Diagnosis: Problems: (1) Major depressive disorder with psychotic features (2) Anxiety disorder, unspecified (3) Impulse control disorder, unspecified (4) Mild cognitive impairment PIERRE PHILIPPE MD Aug 30, 2020 22:25
[2020-08-31 06:27] VITALS: BP 123/73
[2020-08-31 06:41] LABS: BASO # 0.1 x10^3/uL (0.0-0.2); BASO % 1 % (0-3); EOS # 0.2 x10^3/uL (0.0-0.7); EOS % 3 % (0-3); HEMATOCRIT 35.7 % (39.0-53.0); HEMOGLOBIN 12.1 g/dL (13.0-17.5); LYMPH # 1.9 x10^3/uL (1.0-4.8); LYMPH % 32 % (24-48); MEAN CORPUSCULAR HEMOGLOBIN 32 pg (25-35); MEAN CORPUSCULAR HGB CONC 34 g/dL (31-37); MEAN CORPUSCULAR VOLUME 93 fL (79-100); MONO # 0.6 x10^3/uL (0.0-1.1); MONO % 10 % (0-9); NEUT # 3.3 x10^3uL (1.8-7.7); NEUT % 54 % (31-73); PLATELET COUNT 207 x10^3/uL (140-400); RED BLOOD COUNT 3.86 x10^6/uL (4.30-5.70); WHITE BLOOD COUNT 6.1 x10^3/uL (4.0-11.0)
[2020-08-31 07:28] LABS: ALBUMIN 2.9 g/dL (3.4-5.0); ALBUMIN/GLOBULIN RATIO 0.8 (1.0-1.7); ALK PHOS 59 U/L (46-116); ALT (SGPT) 18 U/L (16-63); ANION GAP 5 (6-14); AST (SGOT) 9 U/L (15-37); BLOOD UREA NITROGEN 22 mg/dL (8-26); BUN/CREATININE RATIO 15 (6-20); CALCIUM 8.4 mg/dL (8.5-10.1); CARBON DIOXIDE 28 mmol/L (21-32); CHLORIDE 106 mmol/L (98-107); CREATININE 1.5 mg/dL (0.7-1.3); GLUCOSE 93 mg/dL (70-99); POTASSIUM 4.2 mmol/L (3.5-5.1); SODIUM 139 mmol/L (136-145); TOTAL BILIRUBIN 0.3 mg/dL (0.2-1.0); TOTAL PROTEIN 6.4 g/dL (6.4-8.2)
[2020-08-31 07:50] LABS: VAL ACID 27 mcg/mL (50-100)
[2020-08-31] MEDS: LISINOPRIL 20 MG TABLET PO SCH (08:26)
[2020-08-31] MEDS: PANTOPRAZOLE 40 MG TABLET. PO SCH (08:26)
[2020-08-31] MEDS: VENLAFAXINE XR 37.5 MG CAP.ER.24H. PO SCH (08:26)
[2020-08-31] MEDS: DICLOFENAC SODIUM 1% TOPICAL GEL 100GM TUBE. TP SCH ×5 (08:26→20:16)
[2020-08-31] MEDS: DIVALPROEX 125 MG CAP.SPRINK PO SCH ×2 (08:26→19:41)
--- NOTE | 2020-08-31 08:56 | PDOC ---
Exam Note: Chacorta Note: This note is a late entry for 08/30/2020 covers elements not covered in my initial note. Subjective: The patient was reviewed in the morning of 08/30/2020 for a treatment team meeting with Makayla Forde, Kitty Mercedes and Delmi (social welfare administrator), Vannesa, activity therapy and Yasmin ROJAS, discussed and reviewed the chart. He slept 8-3/4 hours previous night. The patient has been confused. His [place] and [id number] Janie were to attend but were unavailable for the meeting. Review of Systems: No CV, , pulmonary, eye, ENT system symptoms on review. Mental Status Exam: The patient is oriented to himself and situation. 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 Speech is coherent. Abstraction is fair. Computation is impaired. Language function is intact. Attention span is short. Mood and affect remains anxious, somewhat labile at times. No suicidal or homicidal ideation. Laboratory Data: Reviewed. Impression: Major depressive disorder with psychotic features. Mild cognitive impairment. Anxiety disorder unspecified. Impulse control disorder unspecified. Plan: No change from initial note. On 08/29 the patients Effexor XR was increased from 37.5 mg a day to 75 mg a day. We may consider increasing it further depending on his progress with mood and anxiety symptoms resolution. I have received a note from Makayla Forde [facility] that there is a requirement for incapacity for the DPOA to be initiated and this needs to be done by two physicians. I have been requested to do this as one of the physicians and given the patients overall functioning and mental status, I would be happy to sign this form of incapacity to initiate DPOA status. Assessment: Vital Signs/I&O: Vital Signs Date Time Temp Pulse Resp B/P (MAP) Pulse Ox O2 Delivery O2 Flow Rate FiO2 08/31/20 08:26 70 123/73 08/31/20 06:27 97.6 18 94 08/29/20 06:32 Room Air I & O 08/30/20 08/30/20 08/31/20 15:00 23:00 07:00 Intake Total 600 ml 600 ml Balance 600 ml 600 ml Labs: Laboratory Tests Test 08/31/20 06:17 White Blood Count 6.1 x10^3/uL (4.0-11.0) Red Blood Count 3.86 x10^6/uL (4.30-5.70) L Hemoglobin 12.1 g/dL (13.0-17.5) L Hematocrit 35.7 % (39.0-53.0) L Mean Corpuscular Volume 93 fL (79-100) Mean Corpuscular Hemoglobin 32 pg (25-35) Mean Corpuscular Hemoglobin Concent 34 g/dL (31-37) Red Cell Distribution Width 13.0 % (11.5-14.5) Platelet Count 207 x10^3/uL (140-400) Neutrophils (%) (Auto) 54 % (31-73) Lymphocytes (%) (Auto) 32 % (24-48) Monocytes (%) (Auto) 10 % (0-9) H Eosinophils (%) (Auto) 3 % (0-3) Basophils (%) (Auto) 1 % (0-3) Neutrophils # (Auto) 3.3 x10^3uL (1.8-7.7) Lymphocytes # (Auto) 1.9 x10^3/uL (1.0-4.8) Monocytes # (Auto) 0.6 x10^3/uL (0.0-1.1) Eosinophils # (Auto) 0.2 x10^3/uL (0.0-0.7) Basophils # (Auto) 0.1 x10^3/uL (0.0-0.2) Sodium Level 139 mmol/L (136-145) Potassium Level 4.2 mmol/L (3.5-5.1) Chloride Level 106 mmol/L (98-107) Carbon Dioxide Level 28 mmol/L (21-32) Anion Gap 5 (6-14) L Blood Urea Nitrogen 22 mg/dL (8-26) Creatinine 1.5 mg/dL (0.7-1.3) H Estimated GFR (Cockcroft-Gault) 45.0 BUN/Creatinine Ratio 15 (6-20) Glucose Level 93 mg/dL (70-99) Calcium Level 8.4 mg/dL (8.5-10.1) L Total Bilirubin 0.3 mg/dL (0.2-1.0) Aspartate Amino Transferase (AST) 9 U/L (15-37) L Alanine Aminotransferase (ALT) 18 U/L (16-63) Alkaline Phosphatase 59 U/L (46-116) Total Protein 6.4 g/dL (6.4-8.2) Albumin 2.9 g/dL (3.4-5.0) L Albumin/Globulin Ratio 0.8 (1.0-1.7) L Valproic Acid Level 27 mcg/mL (50-100) L Valproic Acid Last Dose Date 08/30/20 Valproic Acid Last Dose Time 2100 Current Medications: Meds: Laboratory Tests Test 08/31/20 06:17 White Blood Count 6.1 x10^3/uL Red Blood Count 3.86 x10^6/uL Hemoglobin 12.1 g/dL Hematocrit 35.7 % Mean Corpuscular Volume 93 fL Mean Corpuscular Hemoglobin 32 pg Mean Corpuscular Hemoglobin Concent 34 g/dL Red Cell Distribution Width 13.0 % Platelet Count 207 x10^3/uL Neutrophils (%) (Auto) 54 % Lymphocytes (%) (Auto) 32 % Monocytes (%) (Auto) 10 % Eosinophils (%) (Auto) 3 % Basophils (%) (Auto) 1 % Neutrophils # (Auto) 3.3 x10^3uL Lymphocytes # (Auto) 1.9 x10^3/uL Monocytes # (Auto) 0.6 x10^3/uL Eosinophils # (Auto) 0.2 x10^3/uL Basophils # (Auto) 0.1 x10^3/uL Sodium Level 139 mmol/L Potassium Level 4.2 mmol/L Chloride Level 106 mmol/L Carbon Dioxide Level 28 mmol/L Anion Gap 5 Blood Urea Nitrogen 22 mg/dL Creatinine 1.5 mg/dL Estimated GFR (Cockcroft-Gault) 45.0 BUN/Creatinine Ratio 15 Glucose Level 93 mg/dL Calcium Level 8.4 mg/dL Total Bilirubin 0.3 mg/dL Aspartate Amino Transf (AST/SGOT) 9 U/L Alanine Aminotransferase (ALT/SGPT) 18 U/L Alkaline Phosphatase 59 U/L Total Protein 6.4 g/dL Albumin 2.9 g/dL Albumin/Globulin Ratio 0.8 Valproic Acid (Depakene) Level 27 mcg/mL Valproic Acid Last Dose Date 08/30/20 Valproic Acid Last Dose Time 2100 Current Medications Medications (Trade) Dose Ordered Sig/Noble Route PRN Reason Start Time Stop Time Status Last Admin Dose Admin Allopurinol (Zyloprim) 100 mg DAILY PO 08/22/20 13:00 08/23/20 04:15 DC 08/22/20 13:00 Colchicine (Colcrys) 1.2 mg PRN DAILY PRN PO gout MRx1 hour 08/22/20 11:45 Diclofenac Sodium (Voltaren) 1 antoine QID TP 08/22/20 13:00 08/29/20 20:17 Lisinopril (Prinivil) 20 mg DAILY PO 08/22/20 13:00 08/31/20 08:26 Pantoprazole Sodium (Protonix) 40 mg DAILY PO 08/22/20 13:00 08/31/20 08:26 Venlafaxine HCl (Effexor Xr) 37.5 mg DAILY PO 08/22/20 13:00 08/29/20 18:51 DC 08/29/20 07:39 Acetaminophen (Tylenol) 650 mg PRN Q6HRS PRN PO MILD PAIN / TEMP > 100.3'F 08/22/20 12:00 Multi-Ingredient Ointment (Analgesic [place]) 1 antoine PRN QID PRN TP MUSCLE PAIN 08/22/20 12:00 Al Hydroxide/Mg Hydroxide (Mylanta Plus Xs) 15 ml PRN AFTMEALHC PRN PO DYSPEPSIA 08/22/20 12:00 Magnesium Hydroxide (Milk Of Magnesia) 2,400 mg PRN QHS PRN PO CONSTIPATION 08/22/20 12:00 Olanzapine (ZyPREXA ZYDIS) 2.5 mg PRN Q2HRS PRN PO PSYCHOSIS 08/22/20 12:00 Divalproex Sodium (Depakote Sprinkles) 250 mg BID PO 08/27/20 21:00 08/31/20 08:26 Venlafaxine HCl (Effexor Xr) 75 mg DAILY PO 08/30/20 09:00 08/31/20 08:26 Current Medications Medications (Trade) Dose Ordered Sig/Noble Route PRN Reason Start Time Stop Time Status Last Admin Dose Admin Venlafaxine HCl (Effexor Xr) 75 mg DAILY PO 08/30/20 09:00 08/31/20 08:26 I have reviewed the current psychotropics carefully including drug interactions. Risk benefit ratio favors no change other than as noted in my dictated progress note. Diagnosis: Problems: (1) Major depressive disorder with psychotic features (2) Anxiety disorder, unspecified (3) Impulse control disorder, unspecified (4) Mild cognitive impairment PIERRE PHILIPPE MD Aug 31, 2020 08:56
--- NOTE | 2020-08-31 10:20 | NUR ---
Pt appropriate with his interactions with others, he is med compliant and cooperative with assessment. He denies SI/HI/VH/AH/delusions/pain. He is able to make his needs known to staff and has no questions/concerns/requests at this time. Plan of care continues, will pass on to next shift.
[2020-08-31 16:24] VITALS: BP 139/80
--- NOTE | 2020-08-31 16:39 | NUR ---
Met with Raphael to discuss the inability for [place], his , to continue to provide the care he needs at home. Raphael was able to understand the information in the moment and stated he did not want to go to a senior living home. He stated that his was going to "just put me somewhere." Reassurance provided to Raphael that his was touring a penitentiary in [place] and planned to visit him weekly as well as bring his great grand daughter, Cisco, to see him. Raphael stated, "she's my life." Raphael spoke of wanting only good things for Cisco and shared stories of their time spent together. Raphael was quickly distracted from topic at hand and MARJ is uncertain that he will be able to retain discussion about placement. MARJ will follow up with Raphael tomorrow to offer support. Notified Raphael's nurse of discussion to monitor and support prn.
--- NOTE | 2020-08-31 19:42 | NUR ---
Patient is agitated and demanding to go home. He is demanding to call his for a ride and has "squared up" with multilple female staff members. PRN zyprexa given with HS medications per order for agitation and aggression. Addendum: 09/01/20 at 0118 by ONOFRE RIVERA RN PRN Zyprexa was effective. Patient quickly calmed down and remained calm the rest of the night.
--- NOTE | 2020-08-31 22:04 | PDOC ---
Exam Note: Chacorta Note: Please also refer to the separate dictated note~for this date of service dictated separately.~Patient seen individually. Discussed the patient with Nursing staff reviewed the chart.~Reviewed interim history and current functioning. Reviewed vital signs,~Labs/ Radiology~and current medications noted below. Continue current treatment with the changes noted in the dictated addendum note Assessment: Vital Signs/I&O: Vital Signs Date Time Temp Pulse Resp B/P (MAP) Pulse Ox O2 Delivery O2 Flow Rate FiO2 08/31/20 16:24 98.1 64 16 139/80 (99) 96 08/29/20 06:32 Room Air I & O 08/30/20 08/30/20 08/31/20 15:00 23:00 07:00 Intake Total 600 ml 600 ml Balance 600 ml 600 ml Labs: Laboratory Tests Test 08/31/20 06:17 White Blood Count 6.1 x10^3/uL (4.0-11.0) Red Blood Count 3.86 x10^6/uL (4.30-5.70) L Hemoglobin 12.1 g/dL (13.0-17.5) L Hematocrit 35.7 % (39.0-53.0) L Mean Corpuscular Volume 93 fL (79-100) Mean Corpuscular Hemoglobin 32 pg (25-35) Mean Corpuscular Hemoglobin Concent 34 g/dL (31-37) Red Cell Distribution Width 13.0 % (11.5-14.5) Platelet Count 207 x10^3/uL (140-400) Neutrophils (%) (Auto) 54 % (31-73) Lymphocytes (%) (Auto) 32 % (24-48) Monocytes (%) (Auto) 10 % (0-9) H Eosinophils (%) (Auto) 3 % (0-3) Basophils (%) (Auto) 1 % (0-3) Neutrophils # (Auto) 3.3 x10^3uL (1.8-7.7) Lymphocytes # (Auto) 1.9 x10^3/uL (1.0-4.8) Monocytes # (Auto) 0.6 x10^3/uL (0.0-1.1) Eosinophils # (Auto) 0.2 x10^3/uL (0.0-0.7) Basophils # (Auto) 0.1 x10^3/uL (0.0-0.2) Sodium Level 139 mmol/L (136-145) Potassium Level 4.2 mmol/L (3.5-5.1) Chloride Level 106 mmol/L (98-107) Carbon Dioxide Level 28 mmol/L (21-32) Anion Gap 5 (6-14) L Blood Urea Nitrogen 22 mg/dL (8-26) Creatinine 1.5 mg/dL (0.7-1.3) H Estimated GFR (Cockcroft-Gault) 45.0 BUN/Creatinine Ratio 15 (6-20) Glucose Level 93 mg/dL (70-99) Calcium Level 8.4 mg/dL (8.5-10.1) L Total Bilirubin 0.3 mg/dL (0.2-1.0) Aspartate Amino Transferase (AST) 9 U/L (15-37) L Alanine Aminotransferase (ALT) 18 U/L (16-63) Alkaline Phosphatase 59 U/L (46-116) Total Protein 6.4 g/dL (6.4-8.2) Albumin 2.9 g/dL (3.4-5.0) L Albumin/Globulin Ratio 0.8 (1.0-1.7) L Valproic Acid Level 27 mcg/mL (50-100) L Valproic Acid Last Dose Date 08/30/20 Valproic Acid Last Dose Time 2100 Current Medications: Meds: Laboratory Tests Test 08/31/20 06:17 White Blood Count 6.1 x10^3/uL Red Blood Count 3.86 x10^6/uL Hemoglobin 12.1 g/dL Hematocrit 35.7 % Mean Corpuscular Volume 93 fL Mean Corpuscular Hemoglobin 32 pg Mean Corpuscular Hemoglobin Concent 34 g/dL Red Cell Distribution Width 13.0 % Platelet Count 207 x10^3/uL Neutrophils (%) (Auto) 54 % Lymphocytes (%) (Auto) 32 % Monocytes (%) (Auto) 10 % Eosinophils (%) (Auto) 3 % Basophils (%) (Auto) 1 % Neutrophils # (Auto) 3.3 x10^3uL Lymphocytes # (Auto) 1.9 x10^3/uL Monocytes # (Auto) 0.6 x10^3/uL Eosinophils # (Auto) 0.2 x10^3/uL Basophils # (Auto) 0.1 x10^3/uL Sodium Level 139 mmol/L Potassium Level 4.2 mmol/L Chloride Level 106 mmol/L Carbon Dioxide Level 28 mmol/L Anion Gap 5 Blood Urea Nitrogen 22 mg/dL Creatinine 1.5 mg/dL Estimated GFR (Cockcroft-Gault) 45.0 BUN/Creatinine Ratio 15 Glucose Level 93 mg/dL Calcium Level 8.4 mg/dL Total Bilirubin 0.3 mg/dL Aspartate Amino Transf (AST/SGOT) 9 U/L Alanine Aminotransferase (ALT/SGPT) 18 U/L Alkaline Phosphatase 59 U/L Total Protein 6.4 g/dL Albumin 2.9 g/dL Albumin/Globulin Ratio 0.8 Valproic Acid (Depakene) Level 27 mcg/mL Valproic Acid Last Dose Date 08/30/20 Valproic Acid Last Dose Time 2100 Current Medications Medications (Trade) Dose Ordered Sig/Noble Route PRN Reason Start Time Stop Time Status Last Admin Dose Admin Allopurinol (Zyloprim) 100 mg DAILY PO 08/22/20 13:00 08/23/20 04:15 DC 08/22/20 13:00 Colchicine (Colcrys) 1.2 mg PRN DAILY PRN PO gout MRx1 hour 08/22/20 11:45 Diclofenac Sodium (Voltaren) 1 antoine QID TP 08/22/20 13:00 08/29/20 20:17 Lisinopril (Prinivil) 20 mg DAILY PO 08/22/20 13:00 08/31/20 08:26 Pantoprazole Sodium (Protonix) 40 mg DAILY PO 08/22/20 13:00 08/31/20 08:26 Venlafaxine HCl (Effexor Xr) 37.5 mg DAILY PO 08/22/20 13:00 08/29/20 18:51 DC 08/29/20 07:39 Acetaminophen (Tylenol) 650 mg PRN Q6HRS PRN PO MILD PAIN / TEMP > 100.3'F 08/22/20 12:00 Multi-Ingredient Ointment (Analgesic [place]) 1 antoine PRN QID PRN TP MUSCLE PAIN 08/22/20 12:00 Al Hydroxide/Mg Hydroxide (Mylanta Plus Xs) 15 ml PRN AFTMEALHC PRN PO DYSPEPSIA 08/22/20 12:00 Magnesium Hydroxide (Milk Of Magnesia) 2,400 mg PRN QHS PRN PO CONSTIPATION 08/22/20 12:00 Olanzapine (ZyPREXA ZYDIS) 2.5 mg PRN Q2HRS PRN PO PSYCHOSIS 08/22/20 12:00 08/31/20 19:41 Divalproex Sodium (Depakote Sprinkles) 250 mg BID PO 08/27/20 21:00 08/31/20 17:44 DC 08/31/20 08:26 Venlafaxine HCl (Effexor Xr) 75 mg DAILY PO 08/30/20 09:00 08/31/20 08:26 Divalproex Sodium (Depakote Sprinkles) 500 mg BID PO 08/31/20 21:00 08/31/20 19:41 Current Medications Medications (Trade) Dose Ordered Sig/Noble Route PRN Reason Start Time Stop Time Status Last Admin Dose Admin Divalproex Sodium (Depakote Sprinkles) 500 mg BID PO 08/31/20 21:00 08/31/20 19:41 I have reviewed the current psychotropics carefully including drug interactions. Risk benefit ratio favors no change other than as noted in my dictated progress note. Diagnosis: Problems: (1) Major depressive disorder with psychotic features (2) Anxiety disorder, unspecified (3) Impulse control disorder, unspecified (4) Mild cognitive impairment PIERRE PHILIPPE MD Aug 31, 2020 22:04
--- NOTE | 2020-09-01 01:18 | NUR ---
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 He stated that it was "unfair" that all these guys can call their wives but he cannot. Patient had just gotten off the phone with his and had been asking her to come pick him up. Patient compliant with medications, taken whole with water. Patient had attempted to "square up" with CNAs multiple times prior to PRN but was calmer after medication and was observed sitting in a chair near the [facility].
[2020-09-01 06:41] VITALS: BP 161/82
--- NOTE | 2020-09-01 07:53 | PDOC ---
Exam Note: Chacorta Note: This note is a late entry for 08/31/2020 covers elements not covered in my initial note. Subjective: The patient was seen individually in the evening of 08/31/2020 with Yasmin ROJAS, discussed and reviewed the chart. He slept 7-1/2 hours previous night. Overall the patient has been anxious, restless. Denies suicidal ideation. Staff shared with him that he will going to a long-term facility. He is somewhat anxious, labile about this and I addressed this with him. Valproic acid level is 27. Review of Systems: No CV, , pulmonary, eye, ENT system symptoms on review. Mental Status Exam: The patient is oriented to himself and situation. I have carefully assessed the patient and asked to sign a physical statement that the DOPA should be activated. Given the patients cognitive deficits, I would agree that designated power of manager massage department paperwork should be activated and I shared this with the patient as well. Speech coherent. Abstraction is fair. Computation is impaired. Language function is intact. Attention span is short. Mood and affect remains anxious, somewhat labile at times. No suicidal or homicidal ideation. Laboratory Data: Reviewed. Impression: Major depressive disorder with psychotic features. Mild cognitive impairment. Anxiety disorder unspecified. Impulse control disorder unspecified. Plan: No change from initial note. The patient is currently on Depakote 250 mg b.i.d. with level of 27 subtherapeutic. We will increase to 500 mg b.i.d. Check CBC, CMP, valproic acid level in 3 days. Maintain Effexor XR 75 mg a day. Adjust further as clinically indicated. Assessment: Vital Signs/I&O: Vital Signs Date Time Temp Pulse Resp B/P (MAP) Pulse Ox O2 Delivery O2 Flow Rate FiO2 09/01/20 06:41 97.0 65 18 161/82 (108) 97 08/29/20 06:32 Room Air I & O 08/31/20 08/31/20 09/01/20 15:00 23:00 07:00 Intake Total 960 ml 360 ml Balance 960 ml 360 ml Current Medications: Meds: Current Medications Medications (Trade) Dose Ordered Sig/Noble Route PRN Reason Start Time Stop Time Status Last Admin Dose Admin Divalproex Sodium (Depakote Sprinkles) 500 mg BID PO 08/31/20 21:00 08/31/20 19:41 I have reviewed the current psychotropics carefully including drug interactions. Risk benefit ratio favors no change other than as noted in my dictated progress note. Diagnosis: Problems: (1) Major depressive disorder with psychotic features (2) Anxiety disorder, unspecified (3) Impulse control disorder, unspecified (4) Mild cognitive impairment PIERRE PHILIPPE MD Sep 01, 2020 07:53
[2020-09-01] MEDS: LISINOPRIL 20 MG TABLET PO SCH (09:27)
[2020-09-01] MEDS: DIVALPROEX 125 MG CAP.SPRINK PO SCH ×2 (09:27→21:10)
[2020-09-01] MEDS: DICLOFENAC SODIUM 1% TOPICAL GEL 100GM TUBE. TP SCH ×4 (09:27→21:38)
[2020-09-01] MEDS: PANTOPRAZOLE 40 MG TABLET. PO SCH (09:27)
[2020-09-01] MEDS: VENLAFAXINE XR 37.5 MG CAP.ER.24H. PO SCH (09:27)
--- NOTE | 2020-09-01 15:52 | NUR ---
1:1 visit with Raphael this afternoon as he sat in the day room. Raphael told MARJ that he was offered a job [employer] and declined it. He also stated that he went to visit his [place] last night. Raphael is social and initiates conversation and speaks as if he is still working. MARJ validated feelings behind communication. Raphael made no mention of previous conversation with MARJ about placement. MARJ will contact [facility] and forward referral packet for review.
[2020-09-01 15:54] VITALS: BP 120/79
--- NOTE | 2020-09-01 16:45 | NUR ---
Nursing note: Pt has been pleasant, med compliant and cooperative this shift. He has no complaints of pain or other concerns. He has spent most of the shift in the day room. He is currently watching TV in the day room. Will continue to monitor.
--- NOTE | 2020-09-01 22:05 | PDOC ---
Exam Note: Chacorta Note: Please also refer to the separate dictated note~for this date of service dictated separately.~Patient seen individually. Discussed the patient with Nursing staff reviewed the chart.~Reviewed interim history and current functioning. Reviewed vital signs,~Labs/ Radiology~and current medications noted below. Continue current treatment with the changes noted in the dictated addendum note Assessment: Vital Signs/I&O: Vital Signs Date Time Temp Pulse Resp B/P (MAP) Pulse Ox O2 Delivery O2 Flow Rate FiO2 09/01/20 15:54 97.4 81 19 120/79 (93) 98 08/29/20 06:32 Room Air I & O 08/31/20 08/31/20 09/01/20 15:00 23:00 07:00 Intake Total 960 ml 360 ml Balance 960 ml 360 ml Current Medications: Meds: Current Medications Medications (Trade) Dose Ordered Sig/Noble Route PRN Reason Start Time Stop Time Status Last Admin Dose Admin Allopurinol (Zyloprim) 100 mg DAILY PO 08/22/20 13:00 08/23/20 04:15 DC 08/22/20 13:00 Colchicine (Colcrys) 1.2 mg PRN DAILY PRN PO gout MRx1 hour 08/22/20 11:45 Diclofenac Sodium (Voltaren) 1 antoine QID TP 08/22/20 13:00 09/01/20 17:34 Lisinopril (Prinivil) 20 mg DAILY PO 08/22/20 13:00 09/01/20 09:27 Pantoprazole Sodium (Protonix) 40 mg DAILY PO 08/22/20 13:00 09/01/20 09:27 Venlafaxine HCl (Effexor Xr) 37.5 mg DAILY PO 08/22/20 13:00 08/29/20 18:51 DC 08/29/20 07:39 Acetaminophen (Tylenol) 650 mg PRN Q6HRS PRN PO MILD PAIN / TEMP > 100.3'F 08/22/20 12:00 Multi-Ingredient Ointment (Analgesic [place]) 1 antoine PRN QID PRN TP MUSCLE PAIN 08/22/20 12:00 Al Hydroxide/Mg Hydroxide (Mylanta Plus Xs) 15 ml PRN AFTMEALHC PRN PO DYSPEPSIA 08/22/20 12:00 Magnesium Hydroxide (Milk Of Magnesia) 2,400 mg PRN QHS PRN PO CONSTIPATION 08/22/20 12:00 Olanzapine (ZyPREXA ZYDIS) 2.5 mg PRN Q2HRS PRN PO PSYCHOSIS 08/22/20 12:00 08/31/20 19:41 Divalproex Sodium (Depakote Sprinkles) 250 mg BID PO 08/27/20 21:00 08/31/20 17:44 DC 08/31/20 08:26 Venlafaxine HCl (Effexor Xr) 75 mg DAILY PO 08/30/20 09:00 09/01/20 09:27 Divalproex Sodium (Depakote Sprinkles) 500 mg BID PO 08/31/20 21:00 09/01/20 21:10 I have reviewed the current psychotropics carefully including drug interactions. Risk benefit ratio favors no change other than as noted in my dictated progress note. Diagnosis: Problems: (1) Major depressive disorder with psychotic features (2) Anxiety disorder, unspecified (3) Impulse control disorder, unspecified (4) Mild cognitive impairment PIERRE PHILIPPE MD Sep 01, 2020 22:05
--- NOTE | 2020-09-01 23:45 | NUR ---
Patient was calm and pleasant. He stated that he is "ready to go" and waiting for a ride. Nurse and patient discussed that it is dark outside and he agreed to "wait until the morning". Patient is medication compliant and cooperative. No paranoia noted at this time. Patient denies SI when asked and seems to be in a better mood than yesterday.
[2020-09-02 06:31] VITALS: BP 108/67
--- NOTE | 2020-09-02 07:14 | PDOC ---
Exam Note: Chacorta Note: This note is a late entry for 09/01/2020 covers elements not covered in my initial note. Subjective: The patient was seen individually in the evening of 09/01/2020 with Apurva ROJAS, discussed and reviewed the chart. He slept 4-1/2 hours previous night. The patient was agitated previous night because he was told he would be going for a placement rather than returning home. Today he has done well with this not obsessing about it and I did address with him this evening. Review of Systems: No CV, , pulmonary, eye, ENT system symptoms on review. Mental Status Exam: The patient is oriented to himself and situation. He is pleasant, cooperative. Speech coherent. Abstraction is fair. Computation is impaired. Language function is intact. Attention span is short. Mood and affect remains anxious, somewhat labile at times. No suicidal or homicidal ideation. Laboratory Data: Reviewed. Impression: Major depressive disorder with psychotic features. Mild cognitive impairment. Anxiety disorder unspecified. Impulse control disorder unspecified. Plan: No change from initial note Assessment: Vital Signs/I&O: Vital Signs Date Time Temp Pulse Resp B/P (MAP) Pulse Ox O2 Delivery O2 Flow Rate FiO2 09/02/20 06:31 98.0 67 16 108/67 (81) 92 08/29/20 06:32 Room Air I & O 09/01/20 09/01/20 09/02/20 15:00 23:00 07:00 Intake Total 580 ml 480 ml Balance 580 ml 480 ml Current Medications: Meds: Current Medications Medications (Trade) Dose Ordered Sig/Noble Route PRN Reason Start Time Stop Time Status Last Admin Dose Admin Allopurinol (Zyloprim) 100 mg DAILY PO 08/22/20 13:00 08/23/20 04:15 DC 08/22/20 13:00 Colchicine (Colcrys) 1.2 mg PRN DAILY PRN PO gout MRx1 hour 08/22/20 11:45 Diclofenac Sodium (Voltaren) 1 antoine QID TP 08/22/20 13:00 09/01/20 17:34 Lisinopril (Prinivil) 20 mg DAILY PO 08/22/20 13:00 09/01/20 09:27 Pantoprazole Sodium (Protonix) 40 mg DAILY PO 08/22/20 13:00 09/01/20 09:27 Venlafaxine HCl (Effexor Xr) 37.5 mg DAILY PO 08/22/20 13:00 08/29/20 18:51 DC 08/29/20 07:39 Acetaminophen (Tylenol) 650 mg PRN Q6HRS PRN PO MILD PAIN / TEMP > 100.3'F 08/22/20 12:00 Multi-Ingredient Ointment (Analgesic [place]) 1 antoine PRN QID PRN TP MUSCLE PAIN 08/22/20 12:00 Al Hydroxide/Mg Hydroxide (Mylanta Plus Xs) 15 ml PRN AFTMEALHC PRN PO DYSPEPSIA 08/22/20 12:00 Magnesium Hydroxide (Milk Of Magnesia) 2,400 mg PRN QHS PRN PO CONSTIPATION 08/22/20 12:00 Olanzapine (ZyPREXA ZYDIS) 2.5 mg PRN Q2HRS PRN PO PSYCHOSIS 08/22/20 12:00 08/31/20 19:41 Divalproex Sodium (Depakote Sprinkles) 250 mg BID PO 08/27/20 21:00 08/31/20 17:44 DC 08/31/20 08:26 Venlafaxine HCl (Effexor Xr) 75 mg DAILY PO 08/30/20 09:00 09/01/20 09:27 Divalproex Sodium (Depakote Sprinkles) 500 mg BID PO 08/31/20 21:00 09/01/20 21:10 I have reviewed the current psychotropics carefully including drug interactions. Risk benefit ratio favors no change other than as noted in my dictated progress note. Diagnosis: Problems: (1) Major depressive disorder with psychotic features (2) Anxiety disorder, unspecified (3) Impulse control disorder, unspecified (4) Mild cognitive impairment PIERRE PHILIPPE MD Sep 02, 2020 07:14
[2020-09-02] MEDS: VENLAFAXINE XR 37.5 MG CAP.ER.24H. PO SCH (08:26)
[2020-09-02] MEDS: LISINOPRIL 20 MG TABLET PO SCH (08:26)
[2020-09-02] MEDS: PANTOPRAZOLE 40 MG TABLET. PO SCH (08:26)
[2020-09-02] MEDS: DIVALPROEX 125 MG CAP.SPRINK PO SCH ×2 (08:27→20:49)
[2020-09-02] MEDS: DICLOFENAC SODIUM 1% TOPICAL GEL 100GM TUBE. TP SCH ×5 (09:00→21:00)
--- NOTE | 2020-09-02 12:27 | NUR ---
Pt in a pleasant and and cheerful presentation this shift. His interactions with others have been positive and appropriate. He still stays in his room quite a bit. He is med compliant and cooperative with assessment. He denies SI/HI/VH/AH/delusions/pain. Plan of care continues, will pass on to next shift.
--- NOTE | 2020-09-02 14:18 | NUR ---
Call placed to Silva, band director at [facility], to discuss Raphael and complete referral for possible placement. Faxed Raphael's referral packet for review. Awaiting admission decision with tentative d/c middle of next week.
[2020-09-02 16:23] VITALS: BP 130/85
--- NOTE | 2020-09-02 22:25 | PDOC ---
Exam Note: Chacorta Note: Please also refer to the separate dictated note~for this date of service dictated separately.~Patient seen individually. Discussed the patient with Nursing staff reviewed the chart.~Reviewed interim history and current functioning. Reviewed vital signs,~Labs/ Radiology~and current medications noted below. Continue current treatment with the changes noted in the dictated addendum note Assessment: Vital Signs/I&O: Vital Signs Date Time Temp Pulse Resp B/P (MAP) Pulse Ox O2 Delivery O2 Flow Rate FiO2 09/02/20 16:23 98.0 71 20 130/85 (100) 94 Room Air I & O 09/01/20 09/01/20 09/02/20 15:00 23:00 07:00 Intake Total 580 ml 480 ml Balance 580 ml 480 ml Current Medications: Meds: Current Medications Medications (Trade) Dose Ordered Sig/Noble Route PRN Reason Start Time Stop Time Status Last Admin Dose Admin Allopurinol (Zyloprim) 100 mg DAILY PO 08/22/20 13:00 08/23/20 04:15 DC 08/22/20 13:00 Colchicine (Colcrys) 1.2 mg PRN DAILY PRN PO gout MRx1 hour 08/22/20 11:45 Diclofenac Sodium (Voltaren) 1 antoine QID TP 08/22/20 13:00 09/02/20 16:26 Lisinopril (Prinivil) 20 mg DAILY PO 08/22/20 13:00 09/02/20 08:26 Pantoprazole Sodium (Protonix) 40 mg DAILY PO 08/22/20 13:00 09/02/20 08:26 Venlafaxine HCl (Effexor Xr) 37.5 mg DAILY PO 08/22/20 13:00 08/29/20 18:51 DC 08/29/20 07:39 Acetaminophen (Tylenol) 650 mg PRN Q6HRS PRN PO MILD PAIN / TEMP > 100.3'F 08/22/20 12:00 Multi-Ingredient Ointment (Analgesic [place]) 1 antoine PRN QID PRN TP MUSCLE PAIN 08/22/20 12:00 Al Hydroxide/Mg Hydroxide (Mylanta Plus Xs) 15 ml PRN AFTMEALHC PRN PO DYSPEPSIA 08/22/20 12:00 Magnesium Hydroxide (Milk Of Magnesia) 2,400 mg PRN QHS PRN PO CONSTIPATION 08/22/20 12:00 Olanzapine (ZyPREXA ZYDIS) 2.5 mg PRN Q2HRS PRN PO PSYCHOSIS 08/22/20 12:00 08/31/20 19:41 Divalproex Sodium (Depakote Sprinkles) 250 mg BID PO 08/27/20 21:00 08/31/20 17:44 DC 08/31/20 08:26 Venlafaxine HCl (Effexor Xr) 75 mg DAILY PO 08/30/20 09:00 09/02/20 08:26 Divalproex Sodium (Depakote Sprinkles) 500 mg BID PO 08/31/20 21:00 09/02/20 20:49 I have reviewed the current psychotropics carefully including drug interactions. Risk benefit ratio favors no change other than as noted in my dictated progress note. Diagnosis: Problems: (1) Major depressive disorder with psychotic features (2) Anxiety disorder, unspecified (3) Impulse control disorder, unspecified (4) Mild cognitive impairment PIERRE PHILIPPE MD Sep 02, 2020 22:25
[2020-09-03 05:56] VITALS: BP 153/90
--- NOTE | 2020-09-03 07:07 | PDOC ---
Exam Note: Chacorta Note: This note is a late entry for 09/02/2020 covers elements not covered in my initial note. Subjective: The patient was seen individually in the evening of 09/02/2020 with Yasmin ROJAS, discussed and reviewed the chart. He slept 7 hours previous night. The patient has been pleasant. I met with him in his room. He has been isolative. No suicidal ideation. Review of Systems: No CV, , pulmonary, eye, ENT system symptoms on review. Mental Status Exam: The patient is oriented to himself and situation. Speech coherent. Abstraction is fair. Computation is impaired. Language function is intact. Attention span is short. Mood and affect remains anxious, somewhat labile at times. No suicidal or homicidal ideation. Laboratory Data: Reviewed. Impression: Major depressive disorder with psychotic features. Mild cognitive impairment. Anxiety disorder unspecified. Impulse control disorder unspecified. Plan: No change from initial note. Possible transition to lower level of care early next week. Assessment: Vital Signs/I&O: Vital Signs Date Time Temp Pulse Resp B/P (MAP) Pulse Ox O2 Delivery O2 Flow Rate FiO2 09/03/20 05:56 98.2 75 18 153/90 (111) 93 09/02/20 16:23 Room Air I & O 09/02/20 09/02/20 09/03/20 15:00 23:00 07:00 Intake Total 460 ml 480 ml Balance 460 ml 480 ml Current Medications: Meds: Current Medications Medications (Trade) Dose Ordered Sig/Noble Route PRN Reason Start Time Stop Time Status Last Admin Dose Admin Allopurinol (Zyloprim) 100 mg DAILY PO 08/22/20 13:00 08/23/20 04:15 DC 08/22/20 13:00 Colchicine (Colcrys) 1.2 mg PRN DAILY PRN PO gout MRx1 hour 08/22/20 11:45 Diclofenac Sodium (Voltaren) 1 antoine QID TP 08/22/20 13:00 09/02/20 16:26 Lisinopril (Prinivil) 20 mg DAILY PO 08/22/20 13:00 09/02/20 08:26 Pantoprazole Sodium (Protonix) 40 mg DAILY PO 08/22/20 13:00 09/02/20 08:26 Venlafaxine HCl (Effexor Xr) 37.5 mg DAILY PO 08/22/20 13:00 08/29/20 18:51 DC 08/29/20 07:39 Acetaminophen (Tylenol) 650 mg PRN Q6HRS PRN PO MILD PAIN / TEMP > 100.3'F 08/22/20 12:00 Multi-Ingredient Ointment (Analgesic [place]) 1 antoine PRN QID PRN TP MUSCLE PAIN 08/22/20 12:00 Al Hydroxide/Mg Hydroxide (Mylanta Plus Xs) 15 ml PRN AFTMEALHC PRN PO DYSPEPSIA 08/22/20 12:00 Magnesium Hydroxide (Milk Of Magnesia) 2,400 mg PRN QHS PRN PO CONSTIPATION 08/22/20 12:00 Olanzapine (ZyPREXA ZYDIS) 2.5 mg PRN Q2HRS PRN PO PSYCHOSIS 08/22/20 12:00 08/31/20 19:41 Divalproex Sodium (Depakote Sprinkles) 250 mg BID PO 08/27/20 21:00 08/31/20 17:44 DC 08/31/20 08:26 Venlafaxine HCl (Effexor Xr) 75 mg DAILY PO 08/30/20 09:00 09/02/20 08:26 Divalproex Sodium (Depakote Sprinkles) 500 mg BID PO 08/31/20 21:00 09/02/20 20:49 I have reviewed the current psychotropics carefully including drug interactions. Risk benefit ratio favors no change other than as noted in my dictated progress note. Diagnosis: Problems: (1) Major depressive disorder with psychotic features (2) Anxiety disorder, unspecified (3) Impulse control disorder, unspecified (4) Mild cognitive impairment PIERRE PHILIPPE MD Sep 03, 2020 07:07
[2020-09-03] MEDS: PANTOPRAZOLE 40 MG TABLET. PO SCH (08:29)
[2020-09-03] MEDS: VENLAFAXINE XR 37.5 MG CAP.ER.24H. PO SCH (08:30)
[2020-09-03] MEDS: LISINOPRIL 20 MG TABLET PO SCH (08:30)
[2020-09-03] MEDS: DIVALPROEX 125 MG CAP.SPRINK PO SCH ×2 (08:30→20:48)
[2020-09-03] MEDS: DICLOFENAC SODIUM 1% TOPICAL GEL 100GM TUBE. TP SCH ×4 (08:30→20:48)
--- NOTE | 2020-09-03 13:48 | NUR ---
Shift Summary Patient had an unevntful shit, medication compliant, ate meals well, pain well managed, had an afternoon nap.
--- NOTE | 2020-09-03 15:34 | NUR ---
Placed follow up call to Silva, director of materials at [facility], to inquire about admission decision. Left voice mail for Silva with request for return phone call. Awaiting call.
[2020-09-03 16:22] VITALS: BP 142/77
--- NOTE | 2020-09-03 22:20 | PDOC ---
Exam Note: Chacorta Note: Please also refer to the separate dictated note~for this date of service dictated separately.~Patient seen individually. Discussed the patient with Nursing staff reviewed the chart.~Reviewed interim history and current functioning. Reviewed vital signs,~Labs/ Radiology~and current medications noted below. Continue current treatment with the changes noted in the dictated addendum note Assessment: Vital Signs/I&O: Vital Signs Date Time Temp Pulse Resp B/P (MAP) Pulse Ox O2 Delivery O2 Flow Rate FiO2 09/03/20 16:22 98.0 65 18 142/77 (98) 97 Room Air I & O 09/02/20 09/02/20 09/03/20 15:00 23:00 07:00 Intake Total 460 ml 480 ml Balance 460 ml 480 ml Current Medications: Meds: Current Medications Medications (Trade) Dose Ordered Sig/Noble Route PRN Reason Start Time Stop Time Status Last Admin Dose Admin Allopurinol (Zyloprim) 100 mg DAILY PO 08/22/20 13:00 08/23/20 04:15 DC 08/22/20 13:00 Colchicine (Colcrys) 1.2 mg PRN DAILY PRN PO gout MRx1 hour 08/22/20 11:45 Diclofenac Sodium (Voltaren) 1 antoine QID TP 08/22/20 13:00 09/03/20 20:48 Lisinopril (Prinivil) 20 mg DAILY PO 08/22/20 13:00 09/03/20 08:30 Pantoprazole Sodium (Protonix) 40 mg DAILY PO 08/22/20 13:00 09/03/20 08:29 Venlafaxine HCl (Effexor Xr) 37.5 mg DAILY PO 08/22/20 13:00 08/29/20 18:51 DC 08/29/20 07:39 Acetaminophen (Tylenol) 650 mg PRN Q6HRS PRN PO MILD PAIN / TEMP > 100.3'F 08/22/20 12:00 Multi-Ingredient Ointment (Analgesic [place]) 1 antoine PRN QID PRN TP MUSCLE PAIN 08/22/20 12:00 Al Hydroxide/Mg Hydroxide (Mylanta Plus Xs) 15 ml PRN AFTMEALHC PRN PO DYSPEPSIA 08/22/20 12:00 Magnesium Hydroxide (Milk Of Magnesia) 2,400 mg PRN QHS PRN PO CONSTIPATION 08/22/20 12:00 Olanzapine (ZyPREXA ZYDIS) 2.5 mg PRN Q2HRS PRN PO PSYCHOSIS 08/22/20 12:00 08/31/20 19:41 Divalproex Sodium (Depakote Sprinkles) 250 mg BID PO 08/27/20 21:00 08/31/20 17:44 DC 08/31/20 08:26 Venlafaxine HCl (Effexor Xr) 75 mg DAILY PO 08/30/20 09:00 09/03/20 08:30 Divalproex Sodium (Depakote Sprinkles) 500 mg BID PO 08/31/20 21:00 09/03/20 20:48 I have reviewed the current psychotropics carefully including drug interactions. Risk benefit ratio favors no change other than as noted in my dictated progress note. Diagnosis: Problems: (1) Major depressive disorder with psychotic features (2) Anxiety disorder, unspecified (3) Impulse control disorder, unspecified (4) Mild cognitive impairment PIERRE PHILIPPE MD Sep 03, 2020 22:20
--- NOTE | 2020-09-04 01:49 | NUR ---
Last evening p walked in the holt for awhile then he went and rested ion his room. Meds were taken whole without difficulty. He has been pleasantly confused, cooperative and had no behaviors tonight.
[2020-09-04 06:56] VITALS: BP 143/84
[2020-09-04 07:37] LABS: BASO # 0.1 x10^3/uL (0.0-0.2); BASO % 1 % (0-3); EOS # 0.2 x10^3/uL (0.0-0.7); EOS % 3 % (0-3); HEMATOCRIT 38.5 % (39.0-53.0); HEMOGLOBIN 12.8 g/dL (13.0-17.5); LYMPH # 1.8 x10^3/uL (1.0-4.8); LYMPH % 30 % (24-48); MEAN CORPUSCULAR HEMOGLOBIN 32 pg (25-35); MEAN CORPUSCULAR HGB CONC 33 g/dL (31-37); MEAN CORPUSCULAR VOLUME 95 fL (79-100); MONO # 0.6 x10^3/uL (0.0-1.1); MONO % 10 % (0-9); NEUT # 3.4 x10^3uL (1.8-7.7); NEUT % 56 % (31-73); PLATELET COUNT 212 x10^3/uL (140-400); RED BLOOD COUNT 4.07 x10^6/uL (4.30-5.70)
--- NOTE | 2020-09-04 07:44 | PDOC ---
Exam Note: Chacorta Note: This note is a late entry for 09/03/2020 covers elements not covered in my initial note. Subjective: The patient was seen individually in the evening of 09/03/2020 with Juvencio ROJAS, discussed and reviewed the chart. He slept 7-1/2 hours previous night. Overall the patient remains somewhat withdrawn. No suicidal ideation. He has been cooperative, somewhat confused. We will discuss discharge to a lower level of care rather than returning home to make sure he has adjusted to this and accepting. 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 Review of Systems: No CV, , pulmonary, eye, ENT system symptoms on review. Mental Status Exam: The patient is oriented to himself and situation. I thoroughly and closely evaluated him for suicidal ideation and he denies any. 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 Speech coherent. Abstraction is fair. Computation is impaired. Language function is intact. Attention span is short. Mood and affect remains anxious, somewhat labile at times. No suicidal or homicidal ideation. Laboratory Data: Reviewed. Impression: Major depressive disorder with psychotic features. Mild cognitive impairment. Anxiety disorder unspecified. Impulse control disorder unspecified. Plan: No change from initial note. Assessment: Vital Signs/I&O: Vital Signs Date Time Temp Pulse Resp B/P (MAP) Pulse Ox O2 Delivery O2 Flow Rate FiO2 09/04/20 06:56 98.0 72 18 143/84 (103) 94 Room Air I & O 09/03/20 09/03/20 09/04/20 15:00 23:00 07:00 Intake Total 600 ml 360 ml Balance 600 ml 360 ml Labs: Laboratory Tests Test 09/04/20 06:59 White Blood Count 6.0 x10^3/uL (4.0-11.0) Red Blood Count 4.07 x10^6/uL (4.30-5.70) L Hemoglobin 12.8 g/dL (13.0-17.5) L Hematocrit 38.5 % (39.0-53.0) L Mean Corpuscular Volume 95 fL (79-100) Mean Corpuscular Hemoglobin 32 pg (25-35) Mean Corpuscular Hemoglobin Concent 33 g/dL (31-37) Red Cell Distribution Width 13.0 % (11.5-14.5) Platelet Count 212 x10^3/uL (140-400) Neutrophils (%) (Auto) 56 % (31-73) Lymphocytes (%) (Auto) 30 % (24-48) Monocytes (%) (Auto) 10 % (0-9) H Eosinophils (%) (Auto) 3 % (0-3) Basophils (%) (Auto) 1 % (0-3) Neutrophils # (Auto) 3.4 x10^3uL (1.8-7.7) Lymphocytes # (Auto) 1.8 x10^3/uL (1.0-4.8) Monocytes # (Auto) 0.6 x10^3/uL (0.0-1.1) Eosinophils # (Auto) 0.2 x10^3/uL (0.0-0.7) Basophils # (Auto) 0.1 x10^3/uL (0.0-0.2) Current Medications: Meds: Laboratory Tests Test 09/04/20 06:59 White Blood Count 6.0 x10^3/uL Red Blood Count 4.07 x10^6/uL Hemoglobin 12.8 g/dL Hematocrit 38.5 % Mean Corpuscular Volume 95 fL Mean Corpuscular Hemoglobin 32 pg Mean Corpuscular Hemoglobin Concent 33 g/dL Red Cell Distribution Width 13.0 % Platelet Count 212 x10^3/uL Neutrophils (%) (Auto) 56 % Lymphocytes (%) (Auto) 30 % Monocytes (%) (Auto) 10 % Eosinophils (%) (Auto) 3 % Basophils (%) (Auto) 1 % Neutrophils # (Auto) 3.4 x10^3uL Lymphocytes # (Auto) 1.8 x10^3/uL Monocytes # (Auto) 0.6 x10^3/uL Eosinophils # (Auto) 0.2 x10^3/uL Basophils # (Auto) 0.1 x10^3/uL Current Medications Medications (Trade) Dose Ordered Sig/Noble Route PRN Reason Start Time Stop Time Status Last Admin Dose Admin Allopurinol (Zyloprim) 100 mg DAILY PO 08/22/20 13:00 08/23/20 04:15 DC 08/22/20 13:00 Colchicine (Colcrys) 1.2 mg PRN DAILY PRN PO gout MRx1 hour 08/22/20 11:45 Diclofenac Sodium (Voltaren) 1 antoine QID TP 08/22/20 13:00 09/03/20 20:48 Lisinopril (Prinivil) 20 mg DAILY PO 08/22/20 13:00 09/03/20 08:30 Pantoprazole Sodium (Protonix) 40 mg DAILY PO 08/22/20 13:00 09/03/20 08:29 Venlafaxine HCl (Effexor Xr) 37.5 mg DAILY PO 08/22/20 13:00 08/29/20 18:51 DC 08/29/20 07:39 Acetaminophen (Tylenol) 650 mg PRN Q6HRS PRN PO MILD PAIN / TEMP > 100.3'F 08/22/20 12:00 Multi-Ingredient Ointment (Analgesic [place]) 1 antoine PRN QID PRN TP MUSCLE PAIN 08/22/20 12:00 Al Hydroxide/Mg Hydroxide (Mylanta Plus Xs) 15 ml PRN AFTMEALHC PRN PO DYSPEPSIA 08/22/20 12:00 Magnesium Hydroxide (Milk Of Magnesia) 2,400 mg PRN QHS PRN PO CONSTIPATION 08/22/20 12:00 Olanzapine (ZyPREXA ZYDIS) 2.5 mg PRN Q2HRS PRN PO PSYCHOSIS 08/22/20 12:00 08/31/20 19:41 Divalproex Sodium (Depakote Sprinkles) 250 mg BID PO 08/27/20 21:00 08/31/20 17:44 DC 08/31/20 08:26 Venlafaxine HCl (Effexor Xr) 75 mg DAILY PO 08/30/20 09:00 09/03/20 08:30 Divalproex Sodium (Depakote Sprinkles) 500 mg BID PO 08/31/20 21:00 09/03/20 20:48 I have reviewed the current psychotropics carefully including drug interactions. Risk benefit ratio favors no change other than as noted in my dictated progress note. Diagnosis: Problems: (1) Major depressive disorder with psychotic features (2) Anxiety disorder, unspecified (3) Impulse control disorder, unspecified (4) Mild cognitive impairment PIERRE PHILIPPE MD Sep 04, 2020 07:44
[2020-09-04 07:55] LABS: ALBUMIN 2.9 g/dL (3.4-5.0); ALBUMIN/GLOBULIN RATIO 0.8 (1.0-1.7); ALK PHOS 57 U/L (46-116); ALT (SGPT) 22 U/L (16-63); ANION GAP 7 (6-14); AST (SGOT) 11 U/L (15-37); BLOOD UREA NITROGEN 20 mg/dL (8-26); BUN/CREATININE RATIO 14 (6-20); CALCIUM 8.6 mg/dL (8.5-10.1); CARBON DIOXIDE 27 mmol/L (21-32); CHLORIDE 105 mmol/L (98-107); CREATININE 1.4 mg/dL (0.7-1.3); GFR 48.6; GLUCOSE 91 mg/dL (70-99); POTASSIUM 4.2 mmol/L (3.5-5.1); SODIUM 139 mmol/L (136-145); TOTAL BILIRUBIN 0.5 mg/dL (0.2-1.0); TOTAL PROTEIN 6.7 g/dL (6.4-8.2)
[2020-09-04] MEDS: LISINOPRIL 20 MG TABLET PO SCH (07:56)
[2020-09-04] MEDS: DIVALPROEX 125 MG CAP.SPRINK PO SCH ×2 (07:56→21:29)
[2020-09-04] MEDS: PANTOPRAZOLE 40 MG TABLET. PO SCH (07:56)
[2020-09-04] MEDS: VENLAFAXINE XR 37.5 MG CAP.ER.24H. PO SCH (07:56)
[2020-09-04] MEDS: DICLOFENAC SODIUM 1% TOPICAL GEL 100GM TUBE. TP SCH ×4 (07:56→21:29)
[2020-09-04 09:45] LABS: VAL ACID 42 mcg/mL (50-100)
--- NOTE | 2020-09-04 15:07 | NUR ---
Shift Summary Patient has had an uneventful shift. Medication compliant and cooperative with medications. Patient has had worsening gait increasing his fall risk. Patient has been pleasant but has been in room majority of shift.
[2020-09-04 16:23] VITALS: BP 143/83
--- NOTE | 2020-09-04 22:07 | PDOC ---
Exam Note: Chacorta Note: Please also refer to the separate dictated note~for this date of service dictated separately.~Patient seen individually. Discussed the patient with Nursing staff reviewed the chart.~Reviewed interim history and current functioning. Reviewed vital signs,~Labs/ Radiology~and current medications noted below. Continue current treatment with the changes noted in the dictated addendum note Assessment: Vital Signs/I&O: Vital Signs Date Time Temp Pulse Resp B/P (MAP) Pulse Ox O2 Delivery O2 Flow Rate FiO2 09/04/20 16:23 97.5 81 17 143/83 (103) 97 Room Air I & O 09/03/20 09/03/20 09/04/20 14:59 22:59 06:59 Intake Total 600 ml 360 ml Balance 600 ml 360 ml Labs: Laboratory Tests Test 09/04/20 06:59 White Blood Count 6.0 x10^3/uL (4.0-11.0) Red Blood Count 4.07 x10^6/uL (4.30-5.70) L Hemoglobin 12.8 g/dL (13.0-17.5) L Hematocrit 38.5 % (39.0-53.0) L Mean Corpuscular Volume 95 fL (79-100) Mean Corpuscular Hemoglobin 32 pg (25-35) Mean Corpuscular Hemoglobin Concent 33 g/dL (31-37) Red Cell Distribution Width 13.0 % (11.5-14.5) Platelet Count 212 x10^3/uL (140-400) Neutrophils (%) (Auto) 56 % (31-73) Lymphocytes (%) (Auto) 30 % (24-48) Monocytes (%) (Auto) 10 % (0-9) H Eosinophils (%) (Auto) 3 % (0-3) Basophils (%) (Auto) 1 % (0-3) Neutrophils # (Auto) 3.4 x10^3uL (1.8-7.7) Lymphocytes # (Auto) 1.8 x10^3/uL (1.0-4.8) Monocytes # (Auto) 0.6 x10^3/uL (0.0-1.1) Eosinophils # (Auto) 0.2 x10^3/uL (0.0-0.7) Basophils # (Auto) 0.1 x10^3/uL (0.0-0.2) Sodium Level 139 mmol/L (136-145) Potassium Level 4.2 mmol/L (3.5-5.1) Chloride Level 105 mmol/L (98-107) Carbon Dioxide Level 27 mmol/L (21-32) Anion Gap 7 (6-14) Blood Urea Nitrogen 20 mg/dL (8-26) Creatinine 1.4 mg/dL (0.7-1.3) H Estimated GFR (Cockcroft-Gault) 48.6 BUN/Creatinine Ratio 14 (6-20) Glucose Level 91 mg/dL (70-99) Calcium Level 8.6 mg/dL (8.5-10.1) Total Bilirubin 0.5 mg/dL (0.2-1.0) Aspartate Amino Transferase (AST) 11 U/L (15-37) L Alanine Aminotransferase (ALT) 22 U/L (16-63) Alkaline Phosphatase 57 U/L (46-116) Total Protein 6.7 g/dL (6.4-8.2) Albumin 2.9 g/dL (3.4-5.0) L Albumin/Globulin Ratio 0.8 (1.0-1.7) L Valproic Acid Level 42 mcg/mL (50-100) L Valproic Acid Last Dose Date 09/03/20 Valproic Acid Last Dose Time 2100 Current Medications: Meds: Laboratory Tests Test 09/04/20 06:59 White Blood Count 6.0 x10^3/uL Red Blood Count 4.07 x10^6/uL Hemoglobin 12.8 g/dL Hematocrit 38.5 % Mean Corpuscular Volume 95 fL Mean Corpuscular Hemoglobin 32 pg Mean Corpuscular Hemoglobin Concent 33 g/dL Red Cell Distribution Width 13.0 % Platelet Count 212 x10^3/uL Neutrophils (%) (Auto) 56 % Lymphocytes (%) (Auto) 30 % Monocytes (%) (Auto) 10 % Eosinophils (%) (Auto) 3 % Basophils (%) (Auto) 1 % Neutrophils # (Auto) 3.4 x10^3uL Lymphocytes # (Auto) 1.8 x10^3/uL Monocytes # (Auto) 0.6 x10^3/uL Eosinophils # (Auto) 0.2 x10^3/uL Basophils # (Auto) 0.1 x10^3/uL Sodium Level 139 mmol/L Potassium Level 4.2 mmol/L Chloride Level 105 mmol/L Carbon Dioxide Level 27 mmol/L Anion Gap 7 Blood Urea Nitrogen 20 mg/dL Creatinine 1.4 mg/dL Estimated GFR (Cockcroft-Gault) 48.6 BUN/Creatinine Ratio 14 Glucose Level 91 mg/dL Calcium Level 8.6 mg/dL Total Bilirubin 0.5 mg/dL Aspartate Amino Transf (AST/SGOT) 11 U/L Alanine Aminotransferase (ALT/SGPT) 22 U/L Alkaline Phosphatase 57 U/L Total Protein 6.7 g/dL Albumin 2.9 g/dL Albumin/Globulin Ratio 0.8 Valproic Acid (Depakene) Level 42 mcg/mL Valproic Acid Last Dose Date 09/03/20 Valproic Acid Last Dose Time 2100 Current Medications Medications (Trade) Dose Ordered Sig/Noble Route PRN Reason Start Time Stop Time Status Last Admin Dose Admin Allopurinol (Zyloprim) 100 mg DAILY PO 08/22/20 13:00 08/23/20 04:15 DC 08/22/20 13:00 Colchicine (Colcrys) 1.2 mg PRN DAILY PRN PO gout MRx1 hour 08/22/20 11:45 Diclofenac Sodium (Voltaren) 1 antoine QID TP 08/22/20 13:00 09/04/20 21:29 Lisinopril (Prinivil) 20 mg DAILY PO 08/22/20 13:00 09/04/20 07:56 Pantoprazole Sodium (Protonix) 40 mg DAILY PO 08/22/20 13:00 09/04/20 07:56 Venlafaxine HCl (Effexor Xr) 37.5 mg DAILY PO 08/22/20 13:00 08/29/20 18:51 DC 08/29/20 07:39 Acetaminophen (Tylenol) 650 mg PRN Q6HRS PRN PO MILD PAIN / TEMP > 100.3'F 08/22/20 12:00 Multi-Ingredient Ointment (Analgesic [place]) 1 antoine PRN QID PRN TP MUSCLE PAIN 08/22/20 12:00 Al Hydroxide/Mg Hydroxide (Mylanta Plus Xs) 15 ml PRN AFTMEALHC PRN PO DYSPEPSIA 08/22/20 12:00 Magnesium Hydroxide (Milk Of Magnesia) 2,400 mg PRN QHS PRN PO CONSTIPATION 08/22/20 12:00 Olanzapine (ZyPREXA ZYDIS) 2.5 mg PRN Q2HRS PRN PO PSYCHOSIS 08/22/20 12:00 08/31/20 19:41 Divalproex Sodium (Depakote Sprinkles) 250 mg BID PO 08/27/20 21:00 08/31/20 17:44 DC 08/31/20 08:26 Venlafaxine HCl (Effexor Xr) 75 mg DAILY PO 08/30/20 09:00 09/04/20 07:56 Divalproex Sodium (Depakote Sprinkles) 500 mg BID PO 08/31/20 21:00 09/04/20 21:29 I have reviewed the current psychotropics carefully including drug interactions. Risk benefit ratio favors no change other than as noted in my dictated progress note. Diagnosis: Problems: (1) Anxiety disorder, unspecified (2) Impulse control disorder, unspecified (3) Mild cognitive impairment (4) Major depressive disorder with psychotic features PIERRE PHILIPPE MD Sep 04, 2020 22:07
--- NOTE | 2020-09-05 02:31 | NUR ---
Last evening pt was mostly in his room. His gait has become more ataxic and he now has a walker that he often forgets to use. He remains confused and is pleasant and cooperative. Meds were taken whole without difficulty.He made no mention of SI and has had no aggression or behaviors tonight.
[2020-09-05 06:55] VITALS: BP 165/97
--- NOTE | 2020-09-05 07:55 | PDOC ---
Exam Note: Chacorta Note: This note is a late entry for 09/04/2020 covers elements not covered in my initial note. Subjective: The patient was seen individually in the evening of 09/04/2020 with Juvencio ROJAS, discussed and reviewed the chart. He slept 7-1/4 hours previous night. I met with the patient at some length in his room. He had drawn the drapes open of his room and there was nice sunshine coming through. I tried to open the drapes further and he said that the sun was too intense for him and I adjusted this. Today is his 80st birthday and he seemed to recognize this as I wished him. He has had a shuffling gait, walking leaning forward, unexplained because none of his psychotropics clearly explains it but we will have a pharmacy consult and consult Neurology, Dr. Valenzuela for clarifications. Review of Systems: No CV, , pulmonary, eye, ENT system symptoms on review. Mental Status Exam: The patient is oriented to himself and situation. Speech has some latency, coherent. Abstraction is fair. Computation is impaired. Language function is intact. Mood and affect somewhat withdrawn. No suicidal ideation. He is still believes he will be going home and I addressed lower level of care rather than going home. Laboratory Data: Reviewed. Impression: Major depressive disorder with psychotic features. Mild cognitive impairment. Anxiety disorder unspecified. Impulse control disorder unspecified. Plan: Continue psychotropics from initial note. Consult as above. Make adjustments as clinically indicated. Assessment: Vital Signs/I&O: Vital Signs Date Time Temp Pulse Resp B/P (MAP) Pulse Ox O2 Delivery O2 Flow Rate FiO2 09/05/20 06:55 97.8 70 16 165/97 (119) 92 09/04/20 16:23 Room Air I & O 09/04/20 09/04/20 09/05/20 15:00 23:00 07:00 Intake Total 600 ml 360 ml Balance 600 ml 360 ml Current Medications: Meds: Current Medications Medications (Trade) Dose Ordered Sig/[place] Route PRN Reason Start Time Stop Time Status Last Admin Dose Admin Allopurinol (Zyloprim) 100 mg DAILY PO 08/22/20 13:00 08/23/20 04:15 DC 08/22/20 13:00 Colchicine (Colcrys) 1.2 mg PRN DAILY PRN PO gout MRx1 hour 08/22/20 11:45 Diclofenac Sodium (Voltaren) 1 antoine QID TP 08/22/20 13:00 09/04/20 21:29 Lisinopril (Prinivil) 20 mg DAILY PO 08/22/20 13:00 09/04/20 07:56 Pantoprazole Sodium (Protonix) 40 mg DAILY PO 08/22/20 13:00 09/04/20 07:56 Venlafaxine HCl (Effexor Xr) 37.5 mg DAILY PO 08/22/20 13:00 08/29/20 18:51 DC 08/29/20 07:39 Acetaminophen (Tylenol) 650 mg PRN Q6HRS PRN PO MILD PAIN / TEMP > 100.3'F 08/22/20 12:00 Multi-Ingredient Ointment (Analgesic [place]) 1 antoine PRN QID PRN TP MUSCLE PAIN 08/22/20 12:00 Al Hydroxide/Mg Hydroxide (Mylanta Plus Xs) 15 ml PRN AFTMEALHC PRN PO DYSPEPSIA 08/22/20 12:00 Magnesium Hydroxide (Milk Of Magnesia) 2,400 mg PRN QHS PRN PO CONSTIPATION 08/22/20 12:00 Olanzapine (ZyPREXA ZYDIS) 2.5 mg PRN Q2HRS PRN PO PSYCHOSIS 08/22/20 12:00 08/31/20 19:41 Divalproex Sodium (Depakote Sprinkles) 250 mg BID PO 08/27/20 21:00 08/31/20 17:44 DC 08/31/20 08:26 Venlafaxine HCl (Effexor Xr) 75 mg DAILY PO 08/30/20 09:00 09/04/20 07:56 Divalproex Sodium (Depakote Sprinkles) 500 mg BID PO 08/31/20 21:00 09/04/20 21:29 I have reviewed the current psychotropics carefully including drug interactions. Risk benefit ratio favors no change other than as noted in my dictated progress note. Diagnosis: Problems: (1) Major depressive disorder with psychotic features (2) Anxiety disorder, unspecified (3) Impulse control disorder, unspecified (4) Mild cognitive impairment PIERRE PHILIPPE MD Sep 05, 2020 07:55
[2020-09-05] MEDS: PANTOPRAZOLE 40 MG TABLET. PO SCH (08:17)
[2020-09-05] MEDS: DIVALPROEX 125 MG CAP.SPRINK PO SCH (08:17)
[2020-09-05] MEDS: VENLAFAXINE XR 37.5 MG CAP.ER.24H. PO SCH ×2 (08:18→20:19)
[2020-09-05] MEDS: LISINOPRIL 20 MG TABLET PO SCH (08:18)
[2020-09-05] MEDS: DICLOFENAC SODIUM 1% TOPICAL GEL 100GM TUBE. TP SCH ×4 (08:19→20:24)
--- NOTE | 2020-09-05 14:28 | NUR ---
PATIENT IS CALM AND COMPLIANT WITH MEDICATIONS, PLEASANTLY CONFUSED, DENIED PAIN CURRENTLY, PATIENT APPEARS TO HAVE ATAXIA , SHUFFLING GAIT THAT IS WORSENING. PATIENT IS CURRENTLY USING A W/C. DR. SHAFER HAS BEEN PAGED FOR CONSULT.
[2020-09-05 16:14] VITALS: BP 148/82
--- NOTE | 2020-09-05 22:13 | PDOC ---
Exam Note: Chacorta Note: Please also refer to the separate dictated note~for this date of service dictated separately.~Patient seen individually. Discussed the patient with Nursing staff reviewed the chart.~Reviewed interim history and current functioning. Reviewed vital signs,~Labs/ Radiology~and current medications noted below. Continue current treatment with the changes noted in the dictated addendum note Assessment: Vital Signs/I&O: Vital Signs Date Time Temp Pulse Resp B/P (MAP) Pulse Ox O2 Delivery O2 Flow Rate FiO2 09/05/20 16:14 97.6 65 18 148/82 (104) 96 09/04/20 16:23 Room Air I & O 09/04/20 09/04/20 09/05/20 15:00 23:00 07:00 Intake Total 600 ml 360 ml Balance 600 ml 360 ml Current Medications: Meds: Current Medications Medications (Trade) Dose Ordered Sig/Noble Route PRN Reason Start Time Stop Time Status Last Admin Dose Admin Allopurinol (Zyloprim) 100 mg DAILY PO 08/22/20 13:00 08/23/20 04:15 DC 08/22/20 13:00 Colchicine (Colcrys) 1.2 mg PRN DAILY PRN PO gout MRx1 hour 08/22/20 11:45 Diclofenac Sodium (Voltaren) 1 antoine QID TP 08/22/20 13:00 09/05/20 20:24 Lisinopril (Prinivil) 20 mg DAILY PO 08/22/20 13:00 09/05/20 08:18 Pantoprazole Sodium (Protonix) 40 mg DAILY PO 08/22/20 13:00 09/05/20 08:17 Venlafaxine HCl (Effexor Xr) 37.5 mg DAILY PO 08/22/20 13:00 08/29/20 18:51 DC 08/29/20 07:39 Acetaminophen (Tylenol) 650 mg PRN Q6HRS PRN PO MILD PAIN / TEMP > 100.3'F 08/22/20 12:00 Multi-Ingredient Ointment (Analgesic [place]) 1 antoine PRN QID PRN TP MUSCLE PAIN 08/22/20 12:00 Al Hydroxide/Mg Hydroxide (Mylanta Plus Xs) 15 ml PRN AFTMEALHC PRN PO DYSPEPSIA 08/22/20 12:00 Magnesium Hydroxide (Milk Of Magnesia) 2,400 mg PRN QHS PRN PO CONSTIPATION 08/22/20 12:00 Olanzapine (ZyPREXA ZYDIS) 2.5 mg PRN Q2HRS PRN PO PSYCHOSIS 08/22/20 12:00 08/31/20 19:41 Divalproex Sodium (Depakote Sprinkles) 250 mg BID PO 08/27/20 21:00 08/31/20 17:44 DC 08/31/20 08:26 Venlafaxine HCl (Effexor Xr) 75 mg DAILY PO 08/30/20 09:00 09/05/20 17:34 DC 09/05/20 08:18 Divalproex Sodium (Depakote Sprinkles) 500 mg BID PO 08/31/20 21:00 09/05/20 17:25 DC 09/05/20 08:17 Venlafaxine HCl (Effexor Xr) 112.5 mg DAILY PO 09/05/20 17:45 09/05/20 20:19 Current Medications Medications (Trade) Dose Ordered Sig/Noble Route PRN Reason Start Time Stop Time Status Last Admin Dose Admin Venlafaxine HCl (Effexor Xr) 112.5 mg DAILY PO 09/05/20 17:45 09/05/20 20:19 I have reviewed the current psychotropics carefully including drug interactions. Risk benefit ratio favors no change other than as noted in my dictated progress note. Diagnosis: Problems: (1) Major depressive disorder with psychotic features (2) Anxiety disorder, unspecified (3) Impulse control disorder, unspecified (4) Mild cognitive impairment PIERRE PHILIPPE MD Sep 05, 2020 22:13
--- NOTE | 2020-09-06 02:54 | NUR ---
Pt remians confused and has been cooperative with staff. He took meds whole without difficulty and has been sleeping well since going to bed. He has had no behaviors tonight.
[2020-09-06 06:46] VITALS: BP 144/74
--- NOTE | 2020-09-06 06:49 | PDOC ---
Exam Note: Chacorta Note: This note is a late entry for 09/05/2020 covers elements not covered in my initial note. Subjective: The patient was seen individually in the evening of 09/05/2020 with Paz ROJAS, discussed and reviewed the chart. He slept 7 hours previous night. He is somewhat forgetful, confused. He has had a shuffling gait. Pharmacy consult suggested Depakote could be contributing to this. We will stop the Depakote. Review of Systems: No CV, , pulmonary, eye, ENT system symptoms on review. Mental Status Exam: The patient is oriented to himself and situation. I met with him in his room at some length. Speech has some latency, coherent. Often response is monosyllabic. Abstraction is fair. Computation is impaired. Language function is intact. Mood and affect somewhat withdrawn. No suicidal ideation. Laboratory Data: Reviewed. Impression: Major depressive disorder with psychotic features. Mild cognitive impairment. Anxiety disorder unspecified. Impulse control disorder unspecified. Plan: Continue psychotropics from initial note. Stop the Depakote. Increase Effexor XR from 75 mg a day to 112.5 mg a day. Continue rest of the psychotropics unchanged. The patient reminded me that yesterday was his birthday but there was no cake or celebration. I wish him Happy Birthday again and he was appreciative. Assessment: Vital Signs/I&O: Vital Signs Date Time Temp Pulse Resp B/P (MAP) Pulse Ox O2 Delivery O2 Flow Rate FiO2 09/06/20 06:46 97.5 65 15 144/74 (97) 92 09/04/20 16:23 Room Air I & O 09/05/20 09/05/20 09/06/20 15:00 23:00 07:00 Intake Total 360 ml 480 ml Balance 360 ml 480 ml Current Medications: Meds: Current Medications Medications (Trade) Dose Ordered Sig/Noble Route PRN Reason Start Time Stop Time Status Last Admin Dose Admin Allopurinol (Zyloprim) 100 mg DAILY PO 08/22/20 13:00 08/23/20 04:15 DC 08/22/20 13:00 Colchicine (Colcrys) 1.2 mg PRN DAILY PRN PO gout MRx1 hour 08/22/20 11:45 Diclofenac Sodium (Voltaren) 1 antoine QID TP 08/22/20 13:00 09/05/20 20:24 Lisinopril (Prinivil) 20 mg DAILY PO 08/22/20 13:00 09/05/20 08:18 Pantoprazole Sodium (Protonix) 40 mg DAILY PO 08/22/20 13:00 09/05/20 08:17 Venlafaxine HCl (Effexor Xr) 37.5 mg DAILY PO 08/22/20 13:00 08/29/20 18:51 DC 08/29/20 07:39 Acetaminophen (Tylenol) 650 mg PRN Q6HRS PRN PO MILD PAIN / TEMP > 100.3'F 08/22/20 12:00 Multi-Ingredient Ointment (Analgesic [place]) 1 antoine PRN QID PRN TP MUSCLE PAIN 08/22/20 12:00 Al Hydroxide/Mg Hydroxide (Mylanta Plus Xs) 15 ml PRN AFTMEALHC PRN PO DYSPEPSIA 08/22/20 12:00 Magnesium Hydroxide (Milk Of Magnesia) 2,400 mg PRN QHS PRN PO CONSTIPATION 08/22/20 12:00 Olanzapine (ZyPREXA ZYDIS) 2.5 mg PRN Q2HRS PRN PO PSYCHOSIS 08/22/20 12:00 08/31/20 19:41 Divalproex Sodium (Depakote Sprinkles) 250 mg BID PO 08/27/20 21:00 08/31/20 17:44 DC 08/31/20 08:26 Venlafaxine HCl (Effexor Xr) 75 mg DAILY PO 08/30/20 09:00 09/05/20 17:34 DC 09/05/20 08:18 Divalproex Sodium (Depakote Sprinkles) 500 mg BID PO 08/31/20 21:00 09/05/20 17:25 DC 09/05/20 08:17 Venlafaxine HCl (Effexor Xr) 112.5 mg DAILY PO 09/05/20 17:45 09/05/20 20:19 Current Medications Medications (Trade) Dose Ordered Sig/Noble Route PRN Reason Start Time Stop Time Status Last Admin Dose Admin Venlafaxine HCl (Effexor Xr) 112.5 mg DAILY PO 09/05/20 17:45 09/05/20 20:19 I have reviewed the current psychotropics carefully including drug interactions. Risk benefit ratio favors no change other than as noted in my dictated progress note. Diagnosis: Problems: (1) Major depressive disorder with psychotic features (2) Anxiety disorder, unspecified (3) Impulse control disorder, unspecified (4) Mild cognitive impairment PIERRE PHILIPPE MD Sep 06, 2020 06:49
[2020-09-06] MEDS: VENLAFAXINE XR 37.5 MG CAP.ER.24H. PO SCH (08:32)
[2020-09-06] MEDS: PANTOPRAZOLE 40 MG TABLET. PO SCH (08:32)
[2020-09-06] MEDS: LISINOPRIL 20 MG TABLET PO SCH (08:33)
[2020-09-06] MEDS: DICLOFENAC SODIUM 1% TOPICAL GEL 100GM TUBE. TP SCH ×4 (08:33→21:00)
--- NOTE | 2020-09-06 13:41 | TX PLAN ---
Interdisciplinary Tx Plan Admission Information Aug 22, 2020 at 08:25 Legal Status (on Admission): Voluntary DPOA/Guardian Name: Kenya Peak- Contact Allergies: Coded Allergies: prednisone (Verified Allergy, Mild, STOMACH UPSET, 08/22/20) Estimated Length of Stay: 14 Diagnoses Primary Diagnosis: MDD with psychotic features, dementia unspecified with BD Reasons for Admission: Depressed, Suicidal ideation, Suspicious/paranoid, Confusion/Disoriented, Poor impulse control Problem in Patient's Words: Raphael's memory loss is progressing to the point that he is difficult to manage at home resulting in ER visits and having to have the police locate Raphael when he went for a walk and did not come home. Additional Admission Comments: Per intake record, paranoid, passive SI, depressed, sundowning, periods of not recognizing , disoriented, states that if he had a gun he would shoot himself. Problems Active Problems: Progressive memory loss Paranoid depressed pasive SI Inactive Problems: Sleeping well Medication compliant Pt Strengths/Limitations Ability for Love: Fair Cognitive Functioning/Ability: Fair Communication Skills/Ability: Fair Financial Resources: Fair Insight/Judgement: Poor Intellectual Ability: Fair Physical Health: Fair Social Skills: Fair Stability in Family: Good Verbal Skills: Fair Discharge Criteria Discharge Criteria: Adequate arrangements @DC, Improved mood/thought Preliminary Discharge Plan Preliminary DC Plan: Placement Needed, Home Special Precautions Special Precautions: Suicide Risk Fall Risk: High Initial D/C Plan Home vs. placement Identified Discharge Needs: While Kenya would like to see Raphael come home, she is touring [facility] as a placement option for Raphael. Currently Utilized Resources Currently Utilized Resources/P: PCP Referrals Community Resources: Out patient psychiatry if available Identified Problems/Hx/Goals Objectives/Short-Term Goals Short Term Goals: Dec. Symp. Depression, Medication Stabilization, Monitor Med Effects, No Suicidal/Hernan. ideation Short Term Goals in Patient's: "To be happy and get my body where it doesn't tremble." Interventions/Frequency Staff Interventions/Frequency&: Nursing to provide rotuine safety checks, medication administration, and adl support. Psychiatry to see thre times weekly. SW visit twice weekly. SW and recreational threapy groups as Raphael desires. 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 Raphael worked at [employer] for a period of time. 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 Social: Zak has enjoyed fishing, boating, camping, and water skiing. Education: Raphael graduated high school. Community Follow-up PCP Out patient psych, if available Community Provider/Family Inpu: Team meeting was held on 08/23/20. Treatment plan data analysis manager was completed on 08/24/20. MARJ reviewed with Kenya on 08/24/20. Kenya will be involved in next team meeting scheduled for 08/30/20. Treatment Plan Explained Patient/Boardinghouse Keeper had this treatment plan explained to him/her as indicated by the signature below and has been given the opportunity to ask questions and make suggestions: Date: Patient/Boardinghouse Keeper Signature: Status Update Update WEEKLY NOTE/UPDATE: Raphael is averaging 70% of meal intakes and 7.5 hours of sleep at night. He has been cooperative with cares and takes his medications whole. He was noted to have more shuffling with his gait so the Depakote was discontinued. Raphael is using a walker at this time. Raphael has denied thoughts of SI. Referral has been faxed to [facility] for review. MARJ has placed two calls to [place] with attempt to get an admission decision, awaiting return phone call. Kenya, , participated in team meeting via phone on this date. Seeking placement, d/c will be arranged once located. DARIAN MCKEON Sep 06, 2020 13:41
--- NOTE | 2020-09-06 13:51 | NUR ---
Nursing note: Pt has been pleasant, med compliant and cooperative this shift. Pt has been denying pain. Pt is in good spirits and denies having any SI. He is currently in the day room watching TV. Will continue to monitor.
--- NOTE | 2020-09-06 13:51 | NUR ---
WEEKLY ACTIVITY THERAPY NOTE Date of Admission:08/22/20 Date of AT Assessment: 08/24 Precipitating behaviors that initiated intake and admission:paranoia, passive SI Goal aimed: support socialization and engagement Initial Goal: Pt will participate in at least three individual or group Activity Therapy sessions per week. Goal repeated 08/30 Weekly progress towards goal: did not achieve, 2/3 Group participation level: 2 min Weekly highlights: danced during [email or web address] group Sunday, with assistance described activities during salad bowl activity Behaviors observed: limited interest in groups, requires lots of assistance with cog stim activities, pleasant Plan:no change to goal Beneficial adaptations:prompting and assistance needed
[2020-09-06 16:01] VITALS: BP 152/73
--- NOTE | 2020-09-06 22:10 | PDOC ---
Exam Note: Chacorta Note: Please also refer to the separate dictated note~for this date of service dictated separately.~Patient seen individually. Discussed the patient with Nursing staff reviewed the chart.~Reviewed interim history and current functioning. Reviewed vital signs,~Labs/ Radiology~and current medications noted below. Continue current treatment with the changes noted in the dictated addendum note Assessment: Vital Signs/I&O: Vital Signs Date Time Temp Pulse Resp B/P (MAP) Pulse Ox O2 Delivery O2 Flow Rate FiO2 09/06/20 16:01 98.1 70 16 152/73 (99) 93 09/04/20 16:23 Room Air I & O 09/05/20 09/05/20 09/06/20 15:00 23:00 07:00 Intake Total 360 ml 480 ml Balance 360 ml 480 ml Current Medications: Meds: Current Medications Medications (Trade) Dose Ordered Sig/Noble Route PRN Reason Start Time Stop Time Status Last Admin Dose Admin Allopurinol (Zyloprim) 100 mg DAILY PO 08/22/20 13:00 08/23/20 04:15 DC 08/22/20 13:00 Colchicine (Colcrys) 1.2 mg PRN DAILY PRN PO gout MRx1 hour 08/22/20 11:45 Diclofenac Sodium (Voltaren) 1 antoine QID TP 08/22/20 13:00 09/06/20 13:00 Lisinopril (Prinivil) 20 mg DAILY PO 08/22/20 13:00 09/06/20 08:33 Pantoprazole Sodium (Protonix) 40 mg DAILY PO 08/22/20 13:00 09/06/20 08:32 Venlafaxine HCl (Effexor Xr) 37.5 mg DAILY PO 08/22/20 13:00 08/29/20 18:51 DC 08/29/20 07:39 Acetaminophen (Tylenol) 650 mg PRN Q6HRS PRN PO MILD PAIN / TEMP > 100.3'F 08/22/20 12:00 Multi-Ingredient Ointment (Analgesic [place]) 1 antoine PRN QID PRN TP MUSCLE PAIN 08/22/20 12:00 Al Hydroxide/Mg Hydroxide (Mylanta Plus Xs) 15 ml PRN AFTMEALHC PRN PO DYSPEPSIA 08/22/20 12:00 Magnesium Hydroxide (Milk Of Magnesia) 2,400 mg PRN QHS PRN PO CONSTIPATION 08/22/20 12:00 Olanzapine (ZyPREXA ZYDIS) 2.5 mg PRN Q2HRS PRN PO PSYCHOSIS 08/22/20 12:00 08/31/20 19:41 Divalproex Sodium (Depakote Sprinkles) 250 mg BID PO 08/27/20 21:00 08/31/20 17:44 DC 08/31/20 08:26 Venlafaxine HCl (Effexor Xr) 75 mg DAILY PO 08/30/20 09:00 09/05/20 17:34 DC 09/05/20 08:18 Divalproex Sodium (Depakote Sprinkles) 500 mg BID PO 08/31/20 21:00 09/05/20 17:25 DC 09/05/20 08:17 Venlafaxine HCl (Effexor Xr) 112.5 mg DAILY PO 09/05/20 17:45 09/06/20 08:32 I have reviewed the current psychotropics carefully including drug interactions. Risk benefit ratio favors no change other than as noted in my dictated progress note. Diagnosis: Problems: (1) Major depressive disorder with psychotic features (2) Anxiety disorder, unspecified (3) Impulse control disorder, unspecified (4) Mild cognitive impairment PIERRE PHILIPPE MD Sep 06, 2020 22:10
--- NOTE | 2020-09-06 23:31 | NUR ---
Nursing Note Pt in room during assessment, denies pain or complaints. Talked to his this pm, had a good conversation. No HS meds po. Now resting comfortably.
[2020-09-07 06:18] VITALS: BP 145/90
--- NOTE | 2020-09-07 07:04 | PDOC ---
Exam Note: Chacorta Note: This note is a late entry for 09/06/2020 covers elements not covered in my initial note. Subjective: The patient was reviewed in the morning of 09/06/2020 for a treatment team meeting with Makayla Forde, Kitty Mercedes and Delmi (social work therapist), Vannesa, activity therapy and Apurva ROJAS, discussed and reviewed the chart. He slept 6-1/2 hours previous night. The patients Kenya attended the meeting as well. Appetite is 70%. We reviewed the patients progress, diagnoses. Gait is better since Depakote was stopped. Review of Systems: No CV, , pulmonary, eye, ENT system symptoms on review. Mental Status Exam: The patient is oriented to himself and situation. I met with him in his room at some length. Speech has some latency, low in volume. Abstraction is fair. Computation is impaired. Language function is intact. Attention span is fair. Mood and affect is improved. Laboratory Data: Reviewed. Impression: Major depressive disorder with psychotic features. Mild cognitive impairment. Anxiety disorder unspecified. Impulse control disorder unsp ecified. Plan: Continue psychotropics from initial note. I carefully assessed him for suicidal ideation. He denied those. Placement options possibly at [facility]. Assessment: Vital Signs/I&O: Vital Signs Date Time Temp Pulse Resp B/P (MAP) Pulse Ox O2 Delivery O2 Flow Rate FiO2 09/07/20 06:18 98.4 64 18 145/90 (108) 94 Room Air I & O 09/06/20 09/06/20 09/07/20 15:00 23:00 07:00 Intake Total 840 ml 360 ml 120 ml Balance 840 ml 360 ml 120 ml Current Medications: Meds: Current Medications Medications (Trade) Dose Ordered Sig/Noble Route PRN Reason Start Time Stop Time Status Last Admin Dose Admin Allopurinol (Zyloprim) 100 mg DAILY PO 08/22/20 13:00 08/23/20 04:15 DC 08/22/20 13:00 Colchicine (Colcrys) 1.2 mg PRN DAILY PRN PO gout MRx1 hour 08/22/20 11:45 Diclofenac Sodium (Voltaren) 1 antoine QID TP 08/22/20 13:00 09/06/20 13:00 Lisinopril (Prinivil) 20 mg DAILY PO 08/22/20 13:00 09/06/20 08:33 Pantoprazole Sodium (Protonix) 40 mg DAILY PO 08/22/20 13:00 09/06/20 08:32 Venlafaxine HCl (Effexor Xr) 37.5 mg DAILY PO 08/22/20 13:00 08/29/20 18:51 DC 08/29/20 07:39 Acetaminophen (Tylenol) 650 mg PRN Q6HRS PRN PO MILD PAIN / TEMP > 100.3'F 08/22/20 12:00 Multi-Ingredient Ointment (Analgesic [place]) 1 antoine PRN QID PRN TP MUSCLE PAIN 08/22/20 12:00 Al Hydroxide/Mg Hydroxide (Mylanta Plus Xs) 15 ml PRN AFTMEALHC PRN PO DYSPEPSIA 08/22/20 12:00 Magnesium Hydroxide (Milk Of Magnesia) 2,400 mg PRN QHS PRN PO CONSTIPATION 08/22/20 12:00 Olanzapine (ZyPREXA ZYDIS) 2.5 mg PRN Q2HRS PRN PO PSYCHOSIS 08/22/20 12:00 08/31/20 19:41 Divalproex Sodium (Depakote Sprinkles) 250 mg BID PO 08/27/20 21:00 08/31/20 17:44 DC 08/31/20 08:26 Venlafaxine HCl (Effexor Xr) 75 mg DAILY PO 08/30/20 09:00 09/05/20 17:34 DC 09/05/20 08:18 Divalproex Sodium (Depakote Sprinkles) 500 mg BID PO 08/31/20 21:00 09/05/20 17:25 DC 09/05/20 08:17 Venlafaxine HCl (Effexor Xr) 112.5 mg DAILY PO 09/05/20 17:45 09/06/20 08:32 I have reviewed the current psychotropics carefully including drug interactions. Risk benefit ratio favors no change other than as noted in my dictated progress note. Diagnosis: Problems: (1) Major depressive disorder with psychotic features (2) Anxiety disorder, unspecified (3) Impulse control disorder, unspecified (4) Mild cognitive impairment PIERRE PHILIPPE MD Sep 07, 2020 07:04
[2020-09-07] MEDS: PANTOPRAZOLE 40 MG TABLET. PO SCH (08:25)
[2020-09-07] MEDS: LISINOPRIL 20 MG TABLET PO SCH (08:25)
[2020-09-07] MEDS: VENLAFAXINE XR 37.5 MG CAP.ER.24H. PO SCH (08:25)
[2020-09-07] MEDS: DICLOFENAC SODIUM 1% TOPICAL GEL 100GM TUBE. TP SCH ×4 (08:26→21:00)
--- NOTE | 2020-09-07 13:42 | NUR ---
[facility] Social Work Discharge Planning Form Patient Name EVAN MAJOR Admit Date: 08/22/20 DISCHARGE PLAN Discharge Destination: [facility] Care Assessment: Waived at this time due to Covid pandemic, will be completed at [facility] within thirty days. [facility], picker / packer time TBD. Special Instructions/Notes: Upon arrival to [facility], schedule follow up appointment with house physician and house psychiatrist within 7-10 days. DISCHARGE TO FACILITY Facility: [facility] Address: [facility] [address] Contact Name: cici Ascencioregional sales director PCP: Dr. David Dial [phone], (fax) Psychiatrist: Facility provider
--- NOTE | 2020-09-07 14:17 | RAD ---
EXAM: Head CT without contrast. HISTORY: Shuffling gait. TECHNIQUE: Computed tomographic images of the head were obtained without contrast. *One or more of the following individualized dose reduction techniques were utilized for this examina tion: 1. Automated exposure control. 2. Adjustment of the mA and/or kV according to patient size. 3. Use of iterative reconstruction technique. COMPARISON: None. FINDINGS: There is no acute or subacute extra-axial or intraparenchymal hemorrhage. There is no mass effect or midline shift. There is no hydrocephalus. There is moderate ventricular enlargement due to cerebral atrophy. There is extensive hypodensity thr oughout the cerebral white matter, most commonly due to chronic small vessel disease in patients of t his age. There is a small chronic lacunar infarct within the left thalamus. The visualized portions of the orbits, paranasal sinuses and mastoid air cells are unremarkable. No s uspicious calvarial lesion is seen. IMPRESSION: 1. No acute intracranial finding. Note is made that MRI is more sensitive for acute infarction. 2. Cerebral atrophy with compressed or enlargement of the ventricles. The size of the ventricles is n ot clearly greater than expected for cerebral volume to suggest normal pressure hydrocephalus. 3. Bilateral cerebral white matter changes, likely due to advanced chronic small vessel disease in a patient of this age. 4. Small chronic lacunar infarct within the left thalamus. Electronically signed by: Saumya Baltazar MD (09/07/2020 2:15 PM) [id number]
[2020-09-07 16:24] VITALS: BP 137/81
--- NOTE | 2020-09-07 16:30 | NUR ---
Nursing note: Pt has been pleasant, med compliant and cooperative this shift. He has spent most of the day in his room, but will come to the dining room for meals and will occasionally walk around the unit and socialize with his peers. He is currently laying quietly in his bed. Will continue to monitor.
--- NOTE | 2020-09-07 23:23 | PDOC ---
Exam Note: Chacorta Note: Please also refer to the separate dictated note~for this date of service dictated separately.~Patient seen individually. Discussed the patient with Nursing staff reviewed the chart.~Reviewed interim history and current functioning. Reviewed vital signs,~Labs/ Radiology~and current medications noted below. Continue current treatment with the changes noted in the dictated addendum note Assessment: Vital Signs/I&O: Vital Signs Date Time Temp Pulse Resp B/P (MAP) Pulse Ox O2 Delivery O2 Flow Rate FiO2 09/07/20 16:24 97.3 65 20 137/81 (99) 94 09/07/20 06:18 Room Air I & O 09/06/20 09/06/20 09/07/20 15:00 23:00 07:00 Intake Total 840 ml 360 ml 120 ml Balance 840 ml 360 ml 120 ml Current Medications: Meds: Current Medications Medications (Trade) Dose Ordered Sig/Noble Route PRN Reason Start Time Stop Time Status Last Admin Dose Admin Allopurinol (Zyloprim) 100 mg DAILY PO 08/22/20 13:00 08/23/20 04:15 DC 08/22/20 13:00 Colchicine (Colcrys) 1.2 mg PRN DAILY PRN PO gout MRx1 hour 08/22/20 11:45 Diclofenac Sodium (Voltaren) 1 antoine QID TP 08/22/20 13:00 09/07/20 12:43 Lisinopril (Prinivil) 20 mg DAILY PO 08/22/20 13:00 09/07/20 08:25 Pantoprazole Sodium (Protonix) 40 mg DAILY PO 08/22/20 13:00 09/07/20 08:25 Venlafaxine HCl (Effexor Xr) 37.5 mg DAILY PO 08/22/20 13:00 08/29/20 18:51 DC 08/29/20 07:39 Acetaminophen (Tylenol) 650 mg PRN Q6HRS PRN PO MILD PAIN / TEMP > 100.3'F 08/22/20 12:00 Multi-Ingredient Ointment (Analgesic [place]) 1 antoine PRN QID PRN TP MUSCLE PAIN 08/22/20 12:00 Al Hydroxide/Mg Hydroxide (Mylanta Plus Xs) 15 ml PRN AFTMEALHC PRN PO DYSPEPSIA 08/22/20 12:00 Magnesium Hydroxide (Milk Of Magnesia) 2,400 mg PRN QHS PRN PO CONSTIPATION 08/22/20 12:00 Olanzapine (ZyPREXA ZYDIS) 2.5 mg PRN Q2HRS PRN PO PSYCHOSIS 08/22/20 12:00 09/07/20 20:44 Divalproex Sodium (Depakote Sprinkles) 250 mg BID PO 08/27/20 21:00 08/31/20 17:44 DC 08/31/20 08:26 Venlafaxine HCl (Effexor Xr) 75 mg DAILY PO 08/30/20 09:00 09/05/20 17:34 DC 09/05/20 08:18 Divalproex Sodium (Depakote Sprinkles) 500 mg BID PO 08/31/20 21:00 09/05/20 17:25 DC 09/05/20 08:17 Venlafaxine HCl (Effexor Xr) 112.5 mg DAILY PO 09/05/20 17:45 09/07/20 08:25 I have reviewed the current psychotropics carefully including drug interactions. Risk benefit ratio favors no change other than as noted in my dictated progress note. Diagnosis: Problems: (1) Major depressive disorder with psychotic features (2) Anxiety disorder, unspecified (3) Impulse control disorder, unspecified (4) Mild cognitive impairment PIERRE PHILIPPE MD Sep 07, 2020 23:23
--- NOTE | 2020-09-08 02:30 | NUR ---
Nursing Note Pt is agitated angry thinks he needs to work, thinks he is on the clock and has a job to do. Talks about the cars and how they need to be moved out of the parking lot to the other part of the driveway. Insists that we are keeping him from his work.
[2020-09-08 06:13] VITALS: BP 118/74
[2020-09-08] MEDS: DICLOFENAC SODIUM 1% TOPICAL GEL 100GM TUBE. TP SCH ×4 (09:00→21:00)
[2020-09-08] MEDS: PANTOPRAZOLE 40 MG TABLET. PO SCH (09:15)
[2020-09-08] MEDS: VENLAFAXINE XR 37.5 MG CAP.ER.24H. PO SCH (09:15)
[2020-09-08] MEDS: LISINOPRIL 20 MG TABLET PO SCH (09:15)
--- NOTE | 2020-09-08 11:51 | NUR ---
Nursing note: Pt in day room at time of AM med pass. He is pleasant, med compliant and cooperative. He denies having any pain/concerns. He is currently sitting in the day room watching TV. Will continue to monitor.
[2020-09-08 15:48] VITALS: BP 126/82
--- NOTE | 2020-09-08 16:21 | NUR ---
1:1 with Raphael this afternoon. Raphael was in the day room watching television. Raphael was alert but appeared more confused this afternoon. Stated he had been working on an old truck at the property across the street. He was calm and without s/s of distress. MARJ allowed Raphael to share to provide socialization. He enjoys talking about his past work and believes he is currently working. MARJ informed Raphael that he would be leaving the hospital tomorrow and that [place], , had his personal belongings that he inquired about.
--- NOTE | 2020-09-08 22:35 | PDOC ---
Exam Note: Chacorta Note: Please also refer to the separate dictated note~for this date of service dictated separately.~Patient seen individually. Discussed the patient with Nursing staff reviewed the chart.~Reviewed interim history and current functioning. Reviewed vital signs,~Labs/ Radiology~and current medications noted below. Continue current treatment with the changes noted in the dictated addendum note Assessment: Vital Signs/I&O: Vital Signs Date Time Temp Pulse Resp B/P (MAP) Pulse Ox O2 Delivery O2 Flow Rate FiO2 09/08/20 15:48 98.2 72 18 126/82 (97) 95 09/07/20 06:18 Room Air I & O 09/07/20 09/07/20 09/08/20 15:00 23:00 07:00 Intake Total 840 ml 360 ml Balance 840 ml 360 ml Current Medications: Meds: Current Medications Medications (Trade) Dose Ordered Sig/Noble Route PRN Reason Start Time Stop Time Status Last Admin Dose Admin Allopurinol (Zyloprim) 100 mg DAILY PO 08/22/20 13:00 08/23/20 04:15 DC 08/22/20 13:00 Colchicine (Colcrys) 1.2 mg PRN DAILY PRN PO gout MRx1 hour 08/22/20 11:45 Diclofenac Sodium (Voltaren) 1 antoine QID TP 08/22/20 13:00 09/08/20 17:00 Lisinopril (Prinivil) 20 mg DAILY PO 08/22/20 13:00 09/08/20 09:15 Pantoprazole Sodium (Protonix) 40 mg DAILY PO 08/22/20 13:00 09/08/20 09:15 Venlafaxine HCl (Effexor Xr) 37.5 mg DAILY PO 08/22/20 13:00 08/29/20 18:51 DC 08/29/20 07:39 Acetaminophen (Tylenol) 650 mg PRN Q6HRS PRN PO MILD PAIN / TEMP > 100.3'F 08/22/20 12:00 Multi-Ingredient Ointment (Analgesic [place]) 1 antoine PRN QID PRN TP MUSCLE PAIN 08/22/20 12:00 Al Hydroxide/Mg Hydroxide (Mylanta Plus Xs) 15 ml PRN AFTMEALHC PRN PO DYSPEPSIA 08/22/20 12:00 Magnesium Hydroxide (Milk Of Magnesia) 2,400 mg PRN QHS PRN PO CONSTIPATION 08/22/20 12:00 Olanzapine (ZyPREXA ZYDIS) 2.5 mg PRN Q2HRS PRN PO PSYCHOSIS 08/22/20 12:00 09/08/20 00:16 Divalproex Sodium (Depakote Sprinkles) 250 mg BID PO 08/27/20 21:00 08/31/20 17:44 DC 08/31/20 08:26 Venlafaxine HCl (Effexor Xr) 75 mg DAILY PO 08/30/20 09:00 09/05/20 17:34 DC 09/05/20 08:18 Divalproex Sodium (Depakote Sprinkles) 500 mg BID PO 08/31/20 21:00 09/05/20 17:25 DC 09/05/20 08:17 Venlafaxine HCl (Effexor Xr) 112.5 mg DAILY PO 09/05/20 17:45 09/08/20 09:15 I have reviewed the current psychotropics carefully including drug interactions. Risk benefit ratio favors no change other than as noted in my dictated progress note. Diagnosis: Problems: (1) Major depressive disorder with psychotic features (2) Anxiety disorder, unspecified (3) Impulse control disorder, unspecified (4) Mild cognitive impairment PIERRE PHILIPPE MD Sep 08, 2020 22:35
[2020-09-08] MEDS ORDERED: OLAN5TAB99 PO (23:09)
[2020-09-09 06:06] VITALS: BP 169/86
[2020-09-09 08:04] VITALS: BP 169/86
[2020-09-09] MEDS: LISINOPRIL 20 MG TABLET PO SCH (08:04)
[2020-09-09] MEDS: VENLAFAXINE XR 37.5 MG CAP.ER.24H. PO SCH (08:04)
[2020-09-09] MEDS: DICLOFENAC SODIUM 1% TOPICAL GEL 100GM TUBE. TP SCH (08:04)
[2020-09-09] MEDS: PANTOPRAZOLE 40 MG TABLET. PO SCH (08:04)
--- NOTE | 2020-09-09 08:43 | NUR ---
Nursing Note Pt awakens pleasant and cooperative, shuffling gait with small steps sort of unsteady on feet needs assist. Compliant with PO meds and assessment. No delusions or agitation.
--- NOTE | 2020-09-09 11:12 | NUR ---
Transition Record was faxed to follow-up provider with the following elements: Reason for admission, procedures, tests, principal diagnosis, pending studies, patient instructions, 11/12 contact information for unit, phone number to obtain pending test results, plan for follow-up care, physician follow-up, advanced directive information, and medication list with dose, duration and instructions. This information was included in the following documents: History and physical, lab results, study results, progress notes, social work planning form, DC instruction form, patient visit summary, and medication reconciliation form. Date & time record faxed:09/08/20 [id number] Record faxed to: [facility] and [facility] Record discussed with/ report given to: Grace ROJAS at [facility] and [facility],
--- NOTE | 2020-09-09 18:36 | PN ---
DATE: 09/08/2020 SUBJECTIVE: The patient denies any new medical or neurological complaints. He has not had any recurrent falls. He denies lower back pain. OBJECTIVE: GENERAL: Well-developed, well-nourished male in no acute distress. VITAL SIGNS: Blood pressure 118/74, respiratory rate 18, pulse 66, temperature 98.2 and oxygen saturation 94% on room air. HEENT: Normocephalic, atraumatic, otherwise unremarkable. NECK: Supple. Negative for carotid bruit, lymphadenopathy or thyromegaly. LUNGS: Clear to A and P. CARDIOVASCULAR: Regular rate and rhythm. Normal S1, S2. ABDOMEN: Soft. Bowel sounds positive. EXTREMITIES: Negative for cyanosis, clubbing or edema. NEUROLOGIC: Mental status: The patient is alert to himself, disoriented to time and place. Speech is fluent. There is no language dysfunction. Memory, judgment and thinking are fair. The patient denies hallucination or delusion. Cranial nerves are grossly intact. Motor examination: No focal muscle bulk wasting. The tone is normal. The strength is 4/5 throughout. Sensory examination revealed normal pinprick, light touch, vibratory and position senses. Deep tendon reflexes were asymmetric and hypoactive with absent Achilles responses. GAIT: The patient has an unsteady gait and tendency to fall, but he has a small step gait. 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 IMPRESSION: 1. Gait disturbances, probably multifactorial including central nervous system, pathology of excessive small vessel ischemic changes, cerebral atrophy and lacunar infarct along with osteoarthritis. 2. Multiple medical problems include hypertension, hyperlipidemia and gastroesophageal reflux disease. 3. Multiple psychiatric problems include dementia, depression and anxiety. RECOMMENDATIONS: 1. Continue with current psychiatric and medical care. 2. Physical therapy evaluation. OBI/ASHLEY/KAREN DR: OBI/carmelina TID: [id number]
--- NOTE | 2020-09-09 18:38 | CONS ---
DATE OF CONSULTATION: 09/07/2020 NEUROLOGY CONSULTATION REFERRING PHYSICIAN: Dr. Dominguez REASON FOR CONSULTATION: Shuffling gait. HISTORY OF PRESENT ILLNESS: This is an 80-year-old right-handed male who was transferred from [facility], [place] on 08/22/2020 for further psychiatric care. A neuro consult was requested as the patient has had abnormal gait, complicated with multiple falls since admission. The patient stated he has had a shuffling gait for approximately 1 year. However, I do not know if the patient is reliable about this date. However, I tried to contact his , but there is no answer at home. The patient denies stiffness. He does have slowing of his adult daily activities. He denies headaches, visual disturbances, nausea, vomiting, chest pain, shortness of breath or palpitation, dysarthria or dysphagia. He has been ambulating with a walker and wheelchair. He has been admitted with a wheelchair and mostly with walker during this hospitalization. PAST MEDICAL HISTORY: Significant for hypertension, hyperlipidemia, chronic kidney disease, gout, osteoarthritis and dementia. FAMILY HISTORY: Noncontributory. SOCIAL HISTORY: The patient was a former smoker. He denies alcohol drinking or illicit drug use. CURRENT MEDICATIONS: Effexor XR 112.5 mg daily, pantoprazole 40 mg p.o. daily, lisinopril 20 mg daily, Voltaren gel q.i.d. for osteoarthritis, olanzapine 2.5 mg q.2 hours p.r.n. for psychosis and agitation, Tylenol p.r.n., colchicine 1.2 mg daily for gout. ALLERGIES: PREDNISONE. PHYSICAL EXAMINATION: GENERAL: Well-developed, well-nourished male in no acute distress. VITAL SIGNS: Blood pressure 145/90, respiratory rate 18, pulse 64, temperature is 98.4, oxygen saturation is 94% on room air. HEENT: Normocephalic, atraumatic, otherwise unremarkable. NECK: Supple, negative for carotid bruit, lymphadenopathy or thyromegaly. LUNGS: Clear to A and P. HEART: Regular rate and rhythm, normal S1, S2. ABDOMEN: Soft. Bowel sounds positive. EXTREMITIES: Negative for cyanosis, clubbing or pedal edema. NEUROLOGIC: Mental status: The patient is alert to himself and situation; however, he is disoriented to time and place. The speech is fluent. There is no language dysfunction. Memory, judgment and abstract thinking are fair. The patient denies hallucination or delusion. Cranial nerves: Visual obrien appeared to be intact. Pupils are reactive to light and accommodation. Extraocular movements are intact. There is no nystagmus. There is no facial motor or sensory deficit. Hearing is intact. The palate is elevated symmetrically. Sternocleidomastoid muscles are powerful bilaterally. The patient shrugs his shoulders symmetrically and protrudes his tongue in the midline without fasciculation or atrophy. Motor examination: No focal muscle bulk was seen. The tone is normal. The strength is 4/5 throughout. Sensory examination reveals normal pinprick and light touch senses throughout. Deep tendon reflexes were symmetric and hypoactive with absent Achilles responses. Gait: The patient uses a chair for ambulation. He has unsteady gait. He has a short step gait with a broad base. He has normal [id number] and roax-hp-fekg. LABORATORY DATA: From 09/04/2020 revealed white blood cells of 6000, hemoglobin 12.8, hematocrit 38.5, platelet count 212,000. Chemistry reveals sodium of 139, potassium 4.2, chloride 105, CO2 of 27, BUN 20, creatinine 1.4, glucose 91. Liver enzymes are normal. Valproic acid is low at 42 on 09/04/2020. IMPRESSION: 1. History of gait disturbance is described as shuffling gait. On examination, the patient had short steps gait and tendency to fall. Etiology is uncertain, rule out central nervous system pathology versus osteoarthritis of the spine or the knees. 2. Multiple medical problems include osteoarthritis, hypertension, hyperlipidemia, chronic kidney disease and gout. 3. Multiple psychiatric problems include dementia, major depression, anxiety disorder and paranoia. RECOMMENDATIONS: 1. Head CT scan. 2. Continue with current medical and psychiatric care. DARCI DR: Fallon TID: [id number]
--- NOTE | 2020-09-09 22:14 | DS ---
DATE OF DISCHARGE: 09/09/2020 PSYCHIATRIC DISCHARGE SUMMARY This note covers elements not covered in my initial note 09/09/2020. REASON FOR ADMISSION: Please refer to the admission history for details. Briefly, the patient is an 79-year-old male referred to us from home via the Emergency Room on account of worsening symptoms of depression and marked psychotic symptoms and memory deficits. He was paranoid, had passive suicidal ideation, was depressed sundowning, periods of not recognizing his . He is disoriented, stated "I am going down the road to shoot myself." He had failed outpatient psychiatric interventions. Behaviors deemed dangerous to himself, referred for inpatient psychiatric stabilization. SIGNIFICANT FINDINGS AND CLINICAL COURSE: Following admission, the patient was seen daily individually by myself from a psychiatric standpoint, medical followup with Dr. Matamoros/Dr. Bhakta. The patient remains withdrawn, somewhat more confused in the evening, paranoid. Adjustments were made in his psychotropics and he seemed to respond to Effexor XR 112.5 mg a day. Depakote was started as a mood stabilizer, but seemed to affect his gait. He is leaning forward unsteady and this was discontinued with resolution of the symptoms. No suicidal or homicidal ideation prior to discharge. REVIEW OF SYSTEMS: Ambulation impaired. No CV, , pulmonary, eye system symptoms on review. MENTAL STATUS EXAM: Oriented to himself, at times situation. Speech moderate latency, often responses monosyllabic. Abstraction fair, computation impaired, language function intact. Mood and affect is improved. LABORATORY DATA: Reviewed. 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 Rest unchanged from admission. DISCHARGE MEDICATIONS: Please refer to the MRAD. DISCHARGE INSTRUCTIONS: Outpatient psychiatric and medical followup at the nursing facility. Time for discharge day management greater than 30 minutes. MAN Dhruv PHILIPPE MD DR: CHALINO/carmelina JOB#: [id number] / [id number]
--- NOTE | 2020-09-10 07:08 | PDOC ---
Exam Note: Chacorta Note: This note is a late entry for 09/07/2020 covers elements not covered in my initial note. Subjective: The patient was seen individually in the evening of 09/07/2020 with Apurva ROJAS, discussed and reviewed the chart. He slept 8-1/2 hours previous night. Overall the patient remains somewhat withdrawn. He was seen by Dr. Valenzuela, Neurology because of his gait disturbance, leaning forward all of which is improved since we stopped the Depakote. Nevertheless CT head with Dr. Valenzuela shows no acute changes. No suicidal ideation noted per nursing report. Review of Systems: Ambulation impaired but better. No CV, , pulmonary, eye, ENT system symptoms on review. Mental Status Exam: The patient is oriented to himself and situation. I met with him in his room at some length. Speech has moderate latency. Often respon se is monosyllabic. Abstraction is fair. Computation is impaired. Language function is intact. Mood and affect is somewhat withdrawn. I assessed closely for suicidal ideation. No suicidal ideation at this time. Laboratory Data: Reviewed. Impression: Major depressive disorder with psychotic features. Mild cognitive impairment. Anxiety disorder unspecified. Impulse control disorder unspecified. Plan: Continue psychotropics from initial note. Maintain Effexor XR 112.5 mg day. Adjust further as clinically indicated. Assessment: Vital Signs/I&O: Vital Signs Date Time Temp Pulse Resp B/P (MAP) Pulse Ox O2 Delivery O2 Flow Rate FiO2 09/09/20 08:04 76 169/86 09/09/20 06:06 97.6 16 96 09/07/20 06:18 Room Air I & O 09/09/20 09/09/20 09/10/20 15:00 23:00 07:00 Intake Total 240 ml Balance 240 ml Current Medications: Meds: Current Medications Medications (Trade) Dose Ordered Sig/Noble Route PRN Reason Start Time Stop Time Status Last Admin Dose Admin Allopurinol (Zyloprim) 100 mg DAILY PO 08/22/20 13:00 08/23/20 04:15 DC 08/22/20 13:00 Colchicine (Colcrys) 1.2 mg PRN DAILY PRN PO gout MRx1 hour 08/22/20 11:45 09/09/20 11:23 DC Diclofenac Sodium (Voltaren) 1 antoine QID TP 08/22/20 13:00 09/09/20 11:23 DC 09/09/20 08:04 Lisinopril (Prinivil) 20 mg DAILY PO 08/22/20 13:00 09/09/20 11:23 DC 09/09/20 08:04 Pantoprazole Sodium (Protonix) 40 mg DAILY PO 08/22/20 13:00 09/09/20 11:23 DC 09/09/20 08:04 Venlafaxine HCl (Effexor Xr) 37.5 mg DAILY PO 08/22/20 13:00 08/29/20 18:51 DC 08/29/20 07:39 Acetaminophen (Tylenol) 650 mg PRN Q6HRS PRN PO MILD PAIN / TEMP > 100.3'F 08/22/20 12:00 09/09/20 11:23 DC Multi-Ingredient Ointment (Analgesic [place]) 1 antoine PRN QID PRN TP MUSCLE PAIN 08/22/20 12:00 09/09/20 11:23 DC Al Hydroxide/Mg Hydroxide (Mylanta Plus Xs) 15 ml PRN AFTMEALHC PRN PO DYSPEPSIA 08/22/20 12:00 09/09/20 11:23 DC Magnesium Hydroxide (Milk Of Magnesia) 2,400 mg PRN QHS PRN PO CONSTIPATION 08/22/20 12:00 09/09/20 11:23 DC Olanzapine (ZyPREXA ZYDIS) 2.5 mg PRN Q2HRS PRN PO PSYCHOSIS 08/22/20 12:00 09/09/20 11:23 DC 09/08/20 00:16 Divalproex Sodium (Depakote Sprinkles) 250 mg BID PO 08/27/20 21:00 08/31/20 17:44 DC 08/31/20 08:26 Venlafaxine HCl (Effexor Xr) 75 mg DAILY PO 08/30/20 09:00 09/05/20 17:34 DC 09/05/20 08:18 Divalproex Sodium (Depakote Sprinkles) 500 mg BID PO 08/31/20 21:00 09/05/20 17:25 DC 09/05/20 08:17 Venlafaxine HCl (Effexor Xr) 112.5 mg DAILY PO 4/18/21 17:45 09/09/20 11:23 DC 09/09/20 08:04 I have reviewed the current psychotropics carefully including drug interactions. Risk benefit ratio favors no change other than as noted in my dictated progress note. Diagnosis: Problems: (1) Major depressive disorder with psychotic features (2) Anxiety disorder, unspecified (3) Impulse control disorder, unspecified (4) Mild cognitive impairment PIERRE PHILIPPE MD Sep 10, 2020 07:08
--- NOTE | 2020-09-10 07:33 | PDOC ---
Exam Note: Chacorta Note: This note is a late entry for 09/08/2020 covers elements not covered in my initial note. Subjective: The patient was seen individually in the evening of 09/08/2020 with Apurva ROJAS, discussed and reviewed the chart. He slept 4 hours previous night. Previous night per nursing report he thought he was working here, angry with staff somewhat paranoid but this seems to be a part of his owning. He has done better during the day today. Review of Systems: Ambulation impaired. No CV, , pulmonary, eye, ENT system symptoms on review. Gait is somewhat unsteady, seated in a wheelchair. Mental Status Exam: The patient is oriented to himself and situation. Speech has moderate latency. Often response is monosyllabic. Abstraction is fair. Computation is impaired. Language function is intact. Mood and affect is somewhat withdrawn. No suicidal ideation at this time. Laboratory Data: Reviewed. Impression: Major depressive disorder with psychotic features. Mild cognitive impairment. Anxiety disorder unspecified. Impulse control disorder unspecified. Plan: Continue psychotropics from initial note. Assessment: Vital Signs/I&O: Vital Signs Date Time Temp Pulse Resp B/P (MAP) Pulse Ox O2 Delivery O2 Flow Rate FiO2 09/09/20 08:04 76 169/86 09/09/20 06:06 97.6 16 96 09/07/20 06:18 Room Air I & O 09/09/20 09/09/20 09/10/20 15:00 23:00 07:00 Intake Total 240 ml Balance 240 ml Current Medications: Meds: Current Medications Medications (Trade) Dose Ordered Sig/Noble Route PRN Reason Start Time Stop Time Status Last Admin Dose Admin Allopurinol (Zyloprim) 100 mg DAILY PO 08/22/20 13:00 08/23/20 04:15 DC 08/22/20 13:00 Colchicine (Colcrys) 1.2 mg PRN DAILY PRN PO gout MRx1 hour 08/22/20 11:45 09/09/20 11:23 DC Diclofenac Sodium (Voltaren) 1 antoine QID TP 08/22/20 13:00 09/09/20 11:23 DC 09/09/20 08:04 Lisinopril (Prinivil) 20 mg DAILY PO 08/22/20 13:00 09/09/20 11:23 DC 09/09/20 08:04 Pantoprazole Sodium (Protonix) 40 mg DAILY PO 08/22/20 13:00 09/09/20 11:23 DC 09/09/20 08:04 Venlafaxine HCl (Effexor Xr) 37.5 mg DAILY PO 08/22/20 13:00 08/29/20 18:51 DC 08/29/20 07:39 Acetaminophen (Tylenol) 650 mg PRN Q6HRS PRN PO MILD PAIN / TEMP > 100.3'F 08/22/20 12:00 09/09/20 11:23 DC Multi-Ingredient Ointment (Analgesic [place]) 1 antoine PRN QID PRN TP MUSCLE PAIN 08/22/20 12:00 09/09/20 11:23 DC Al Hydroxide/Mg Hydroxide (Mylanta Plus Xs) 15 ml PRN AFTMEALHC PRN PO DYSPEPSIA 08/22/20 12:00 09/09/20 11:23 DC Magnesium Hydroxide (Milk Of Magnesia) 2,400 mg PRN QHS PRN PO CONSTIPATION 08/22/20 12:00 09/09/20 11:23 DC Olanzapine (ZyPREXA ZYDIS) 2.5 mg PRN Q2HRS PRN PO PSYCHOSIS 08/22/20 12:00 09/09/20 11:23 DC 09/08/20 00:16 Divalproex Sodium (Depakote Sprinkles) 250 mg BID PO 08/27/20 21:00 08/31/20 17:44 DC 08/31/20 08:26 Venlafaxine HCl (Effexor Xr) 75 mg DAILY PO 08/30/20 09:00 09/05/20 17:34 DC 09/05/20 08:18 Divalproex Sodium (Depakote Sprinkles) 500 mg BID PO 08/31/20 21:00 09/05/20 17:25 DC 09/05/20 08:17 Venlafaxine HCl (Effexor Xr) 112.5 mg DAILY PO 09/05/20 17:45 09/09/20 11:23 DC 09/09/20 08:04 I have reviewed the current psychotropics carefully including drug interactions. Risk benefit ratio favors no change other than as noted in my dictated progress note. Diagnosis: Problems: (1) Major depressive disorder with psychotic features (2) Anxiety disorder, unspecified (3) Impulse control disorder, unspecified (4) Mild cognitive impairment PIERRE PHILIPPE MD Sep 10, 2020 07:33
--- NOTE | 2020-09-10 07:53 | PDOC ---
Exam Note: Chacorta Note: Late entry for 09/09/2020. Please also refer to the separate dictated note~for this date of service dictated separately.~Patient seen individually. Discussed the patient with Nursing staff reviewed the chart.~Reviewed interim history and current functioning. Reviewed vital signs,~Labs/ Radiology~and current medic ations noted below. Continue current treatment with the changes noted in the dictated addendum note Assessment: Vital Signs/I&O: Vital Signs Date Time Temp Pulse Resp B/P (MAP) Pulse Ox O2 Delivery O2 Flow Rate FiO2 09/09/20 08:04 76 169/86 09/09/20 06:06 97.6 16 96 09/07/20 06:18 Room Air I & O 09/09/20 09/09/20 09/10/20 15:00 23:00 07:00 Intake Total 240 ml Balance 240 ml Current Medications: Meds: Current Medications Medications (Trade) Dose Ordered Sig/Noble Route PRN Reason Start Time Stop Time Status Last Admin Dose Admin Allopurinol (Zyloprim) 100 mg DAILY PO 08/22/20 13:00 08/23/20 04:15 DC 08/22/20 13:00 Colchicine (Colcrys) 1.2 mg PRN DAILY PRN PO gout MRx1 hour 08/22/20 11:45 09/09/20 11:23 DC Diclofenac Sodium (Voltaren) 1 antoine QID TP 08/22/20 13:00 09/09/20 11:23 DC 09/09/20 08:04 Lisinopril (Prinivil) 20 mg DAILY PO 08/22/20 13:00 09/09/20 11:23 DC 09/09/20 08:04 Pantoprazole Sodium (Protonix) 40 mg DAILY PO 08/22/20 13:00 09/09/20 11:23 DC 09/09/20 08:04 Venlafaxine HCl (Effexor Xr) 37.5 mg DAILY PO 08/22/20 13:00 08/29/20 18:51 DC 08/29/20 07:39 Acetaminophen (Tylenol) 650 mg PRN Q6HRS PRN PO MILD PAIN / TEMP > 100.3'F 08/22/20 12:00 09/09/20 11:23 DC Multi-Ingredient Ointment (Analgesic [place]) 1 antoine PRN QID PRN TP MUSCLE PAIN 08/22/20 12:00 09/09/20 11:23 DC Al Hydroxide/Mg Hydroxide (Mylanta Plus Xs) 15 ml PRN AFTMEALHC PRN PO DYSPEPSIA 08/22/20 12:00 09/09/20 11:23 DC Magnesium Hydroxide (Milk Of Magnesia) 2,400 mg PRN QHS PRN PO CONSTIPATION 08/22/20 12:00 09/09/20 11:23 DC Olanzapine (ZyPREXA ZYDIS) 2.5 mg PRN Q2HRS PRN PO PSYCHOSIS 08/22/20 12:00 09/09/20 11:23 DC 09/08/20 00:16 Divalproex Sodium (Depakote Sprinkles) 250 mg BID PO 08/27/20 21:00 08/31/20 17:44 DC 08/31/20 08:26 Venlafaxine HCl (Effexor Xr) 75 mg DAILY PO 08/30/20 09:00 09/05/20 17:34 DC 09/05/20 08:18 Divalproex Sodium (Depakote Sprinkles) 500 mg BID PO 08/31/20 21:00 09/05/20 17:25 DC 09/05/20 08:17 Venlafaxine HCl (Effexor Xr) 112.5 mg DAILY PO 09/05/20 17:45 09/09/20 11:23 DC 09/09/20 08:04 I have reviewed the current psychotropics carefully including drug interactions. Risk benefit ratio favors no change other than as noted in my dictated progress note. Diagnosis: Problems: (1) Major neurocognitive disorder (2) Dementia in Alzheimer's disease with delusions (3) Dementia in Alzheimer's disease with depression (4) Dementia, vascular, with delusions (5) Dementia, vascular, with depression (6) Major depressive disorder with psychotic features (7) Anxiety disorder, unspecified PIERER PHILIPPE MD Sep 10, 2020 07:53
== END 2020-09-09 11:22 | DRG 885 ==
LOC: GEROPSY 08:25
PROVIDERS: ADMIT Psychiatry & Neurology Psychiatry; ATTEND Psychiatry & Neurology Psychiatry
DX: F32.3 Major depressive disorder, single episode, severe with psychotic features (principal); F05 Delirium due to known physiological condition; N18.30 Chronic kidney disease, stage 3 unspecified; F01.51 Vascular dementia, unspecified severity, with behavioral disturbance; F02.81 Dementia in other diseases classified elsewhere, unspecified severity, with behavioral disturbance; R45.851 Suicidal ideations; E78.5 Hyperlipidemia, unspecified; F41.0 Panic disorder [episodic paroxysmal anxiety]; F41.1 Generalized anxiety disorder; F63.9 Impulse disorder, unspecified; G30.9 Alzheimer's disease, unspecified; I12.9 Hypertensive chronic kidney disease with stage 1 through stage 4 chronic kidney disease, or unspecified chronic kidney disease; K21.9 Gastro-esophageal reflux disease without esophagitis; M10.9 Gout, unspecified; M19.90 Unspecified osteoarthritis, unspecified site; R29.6 Repeated falls; Z79.899 Other long term (current) drug therapy; Z80.1 Family history of malignant neoplasm of trachea, bronchus and lung; Z87.891 Personal history of nicotine dependence; Z20.822 Contact with and (suspected) exposure to COVID-19; Z88.8 Allergy status to other drugs, medicaments and biological substances
CPT/HCPCS: 36415; 70450; 80053; 80164; 85025; U0003; U0005; 97535